=== PATIENT | male | born 1960 | race Caucasian/White ===

== ENCOUNTER 2020-11-17 08:30 | Inpatient (IN) | payer OTHER, SELFPAY ==
[2020-11-17] VITALS (17 sets, daily range): BP systolic 136–168; BP diastolic 83–119; PULSE 71–115; RESP 17–28; TEMP 36.2–36.8; O2SAT 94–99; BMI 31.2
--- NOTE | ~2020-11-17 | XR_ITS ---
EXAMINATION: XR chest 1V portable DATE: 11/17/2020 08:57 INDICATION: Ventricular fibrillation arrest. Transient alteration of awareness. TECHNIQUE: frontal view of the chest was obtained. COMPARISON: None FINDINGS: Patient is rotated towards the right. Bilateral increased interstitial pattern with mild pulmonary ed arlin. No focal airspace opacities, pleural effusion or pneumothorax. Borderline heart size accounting for AP technique. Enlargement of the central pulmonary arteries suggestive of pulmonary arterial hype rtension. IMPRESSION: 1. Borderline heart size with diffuse increased interstitial pattern consistent with mild pulmonary e rylee. Reviewed, dictated and finalized at location A. IMPRESSION: 1. Borderline heart size with diffuse increased interstitial pattern consistent with mild pulmonary edema.
--- NOTE | ~2020-11-17 | XR_ITS ---
XR chest ET placement 11/18/2020 00:39 Indication: Intubation. Respiratory arrest. Procedure: AP portable chest Comparison: 11/17/2020 Findings: Cardiomegaly with mild interstitial edema. No pleural effusion or pneumothorax. Endotrachea l tube 2.2 cm from the peter. NG tube passes in the stomach. Impression: 1: Cardiomegaly with mild interstitial edema. Reviewed, dictated and finalized at location A. Impression: 1: Cardiomegaly with mild interstitial edema.
--- NOTE | ~2020-11-17 | CT_ITS ---
EXAMINATION: CT brain wo con DATE: 11/17/2020 10:27 INDICATION: Altered mental status TECHNIQUE: Computed tomography (CT) of the head was performed without intravenous contrast. Sagittal and coronal reconstructions were performed. The mA was adjusted according to patient size. Iterative reconstruction technique was employed. The dose-length product was 605.33 mGy-cm. COMPARISON: None FINDINGS: No acute intracranial hemorrhage, acute infarction or abnormal extra axial fluid collection. Symmetri c mild increased prominence of the sulci and subarachnoid spaces overlying the convexities consistent with mild age-appropriate diffuse cerebral volume loss. Ventricles are normal and symmetric. No mas s/mass effect. The orbits, paranasal sinuses and mastoid air cells are normal. IMPRESSION: 1. Only aging brain. No acute intracranial process. Reviewed, dictated and finalized at location A.
--- NOTE | ~2020-11-17 | XR_ITS ---
XR abdomen NG/feed tube insert INDICATION: Evaluate NG tube position. TECHNIQUE: Limited KUB perform for evaluating NG tube . COMPARISON: No prior studies for comparison. FINDINGS: NG tube tip in the stomach. Left basilar airspace disease is present. Possible small left e ffusion.. IMPRESSION: 1: NG tube tip in the stomach. 2: Left basilar airspace disease, atelectasis versus pneumonia. Reviewed, dictated and finalized at location A.
--- NOTE | 2020-11-17 08:36 | ECG_ITS ---
Measurements Intervals [place] Rate: 120 P: NM: 0 QRS: 58 QRSD: 104 T: 0 QT: 347 QTc: 490 Interpretive Statements ATRIAL FIBRILLATION WITH RAPID VENTRICULAR RESPONSE DELAYED PRECORDIAL R/S TRANSITION NONSPECIFIC ST & T-WAVE ABNORMALITY- INF/LAT LEADS BASELINE ARTIFACT- I, II, III, AVR, AVL, AVF, V1-V6 ABNORMAL ECG Electronically Signed On 11-17-2020 16:49:02 CDT by Nash Murrell D.O.
--- NOTE | 2020-11-17 08:52 | ED.GENADULT ---
HPI - General Adult General Chief complaint: Cardiac Arrest/CPR Stated complaint: post cardiac arrest Source: patient History of Present Illness HPI narrative: Patient is a 60 y/o male brought in by EMS for V fib arrest. Per EMS, they were called around 7:47 for unresponsiveness. When police arrived, patient had no pulse with agonal respiration. CPR was started. When EMS arrived, patient was noted to be in V fib. He was defibrillated x 3 and eventually achieved ROSC. He was downtime was possibly 30 minutes. He was given Amiodarone 150 mg x 1. Oral airway was inserted, but removed CITY COLLECTOR due to patient's agitation. Patient is currently awake and agitated, but no able to answer questions. states that she was the bathroom and heard him breathing heavy. She noticed he was unresponsive. She called 911 and started CPR after she was instructed to do so. Related Data Home Medications Medication Instructions Recorded Confirmed multivitamin,tx-minerals 1 tablet PO DAILY 06/18/20 11/17/20 Allergies Allergy/AdvReac Type Severity Reaction Status Date / Time No Known Allergies Allergy Verified 11/17/20 09:22 Review of Systems Review of Systems: ROS unobtainable: Yes unobtainable due to mental status PMFSH Past Medical History Medical History Diabetes GERD (gastroesophageal reflux disease) HLD (hyperlipidemia) Hypertension Normal colonoscopy (~2016) repeat 5 years Family History Family History Father Hypertension Diabetes mellitus High cholesterol Mother Diabetes mellitus Heart disease High cholesterol Hypertension Sibling Breast cancer Social History Social History Smoking status: Never smoker Smokeless tobacco user: other Second hand tobacco smoke exposure: No Alcohol intake: never Substance use: never Substance use type: does not use Gender identity (if verbalized by the patient): Male Sexual Orientation (if Verbalized by the Patient): Straight or Heterosexual Spiritual care concerns: No Exam Const: General: well developed Orientation/consciousness: confusion HENMT: Head: normocephalic Ears: external ears normal General nose exam: Normal external nose present Eyes: General: appearance normal, both eyes and all related structures Conjunctivae: conjunctivae normal Neck: Neck: normal visual inspection and full ROM Chest: Chest palpation & inspection: normal inspection of the chest and no tenderness Resp: Effort & Inspection: normal respiratory effort Auscultation: clear to auscultation bilaterally Cardio: Rate: tachycardic Rhythm: abnormal rhythm irregularly irregular GI: GI Palp: No abdominal tenderness and Yes Soft to palpation Skin: General skin exam: normal color and turgor normal Neuro: General: confusion and other (does not answer questions or follow commands, moans and groans) Cognition (Neuro): abnormal cognition Motor exam (neuro): Other motor observations present (moves all 4 extremities spontaneously) Extrem: General: normal to inspection, full ROM and no pedal edema Psych: Appearance: grossly normal Speech and movement: Psychomotor agitation in speech present Affect: normal affect and Irritable affect present Course Reevaluation(s) Reevaluation #1: Rechecked. Patient is more awake, but still confused. He is able to state his name, but does not know where he is. He is able to follow simple commands and move all 4 extremities. Date: 11/17/20 Time: 10:17 Consultations Consultation #1: Discussed with Dr. Ott, who agrees to admit. Date: 11/17/20 Time: 09:27 Consultation #2: Discussed with Dr. Colon, who agrees to accept patient to ICU and will consult. Date: 11/17/20 Time: 09:30 Consultation #3: Discussed with Dr. Rey, who agrees to consult. Date: 11/17/20 Time: 09:48 Vital Signs Vital signs:
--- NOTE | 2020-11-17 08:55 | PC.NURSE ---
Pt continues to pull at IV, monitor, defib pads. Soft limb restraints applied for patient safety per order Dr. Mcnally.
--- NOTE | 2020-11-17 09:02 | PC.NURSE ---
Pharmacy contacted for amiodarone gtt. to bedside. Pt reoriented prn, but does not appear to recognize . Pt continues to attempt to pull at medical equipment. Per , has PMH DM, high cholesterol,HTN, acid reflux.
--- NOTE | 2020-11-17 09:05 | PC.NURSE ---
Addendum entered by Kvng Barros RN 11/17/20 09:22: Pt's states that she came out of the shoswer to patient having loud breathing, states she couldn't feel a pulse so she initiated CPR per dispatch request and then [employer] took over when they arrived. Original Note: CT unavailable at this time. updated and remains at bedside.
[2020-11-17 09:10] LABS: Basophils Absolute Auto 0.1 K/mm3 (0.0-0.1); Basophils Percent Auto 0.6 % (0.2-1.2); Eosinophils Absolute Auto 0.2 K/mm3 (0-0.3); Eosinophils Percent Auto 1.7 % (0-4.4); Hematocrit 44.9 % (42.0-52.0); Hemoglobin 14.4 g/dL (14.0-18.0); Immature Granulocyte Absolute 0.12 K/mm3 (0.00-0.031); Immature Granulocyte Percent A 1.2 % (0-0.5); Lymphocytes Absolute Auto 4.47 K/mm3 (0.9-3.2); Lymphocytes Percent Auto 43.3 % (18.3-44.2); Mean Corpuscular HGB Conc 32.1 g/dl (32-36); Mean Corpuscular Hemoglobin 28.5 pg (26-34); Mean Corpuscular Volume 88.9 fl (80-100); Mean Platelet Volume 11.4 fl (7.4-10.4); Monocytes Absolute Auto 0.8 K/mm3 (0.1-0.6); Monocytes Percent Auto 7.6 % (2.6-8.5); Neutrophils Absolute Auto 4.7 K/mm3 (1.3-6.7); Neutrophils Percent Auto 45.6 % (45.5-73.1); Platelet Count Result 235 k/mm3 (150-375); Red Blood Count 5.05 M/mm3 (4.6-6.20); Red Cell Distribution Width 13.6 % (11.5-14.5); White Blood Count 10.3 K/mm3 (4.5-10.0)
[2020-11-17] MEDS: AMIODARONE 360 MG/D5W 200 ML 360 MG/200 ML BAG 33.33 MG IV CONT (09:16)
[2020-11-17 09:19] LABS: Partial Thromboplastin Time 23.8 SECONDS (22.3-36.8)
[2020-11-17 09:22] LABS: Alanine Aminotransferase 171 U/L (4-50); Albumin Level 4.2 g/dL (3.5-5.1); Alkaline Phosphatase 93 U/L (38-126); Anion Gap 12 mmol/L (8-16); Aspartate Amino Transferase 159 U/L (17-59); Bilirubin,Total 0.5 mg/dL (0.2-1.3); Blood Urea Nitrogen 36 mg/dL (9-20); Calcium 9.3 mg/dL (8.4-10.2); Carbon Dioxide 25 mmol/L (22-30); Chloride 104 mmol/L (98-107); Estimated CRCL calculation 68 ml/min; Estimated Glomerular Filt Rate 57; Glucose 288 mg/dL (75-110); Potassium 4.4 mmol/L (3.4-5.0); Sodium 141 mmol/L (137-145)
[2020-11-17 09:31] LABS: Lactic Acid Reflex 5.6 mmol/L (0.7-2.1)
--- NOTE | 2020-11-17 09:32 | PC.NURSE ---
o2 placed at 2L/NC for pulse oximetry consistently 85-59% with good pleth. Pt remains in limb restraints to wrists. Note pt occasionally blows out, making sounds from lips. Pt's states that's the kind of noisy breathing he was doing.
[2020-11-17 09:33] LABS: Troponin I 0.031 ng/mL (0.000-0.034)
[2020-11-17 10:09] LABS: Magnesium 1.8 mg/dL (1.6-2.3)
--- NOTE | 2020-11-17 10:16 | PC.NURSE ---
To CT via stretcher.
--- NOTE | 2020-11-17 10:33 | PC.NURSE ---
Pt returns from CT. Pt now conversing with . Aware of name and month. Continuously asking why am I here? . Reoriented prn. Preparing to transport to ICU.
--- NOTE | 2020-11-17 10:49 | ADMGEN ---
This patient, James Magaña, was admitted to Intensive Care Unit-2. Patient/family oriented to hospital policies and general routines including ID bracelet, bed and alarms, visiting hours, pain management, procedures, bathroom and other care routines, personal items, smoking policy, room service/diet, and visiting hours. Information on how to activate the Rapid Response Team has been discussed. Patient/Family are encouraged to report perceived risks to care and to ask questions if they do not understand what they are told or what they should do.
--- NOTE | 2020-11-17 11:11 | WPDCNINT ---
Assessment and Plan Assessment and plan (1) Cardiac arrest with ventricular fibrillation: Code(s): I46.9 - Cardiac arrest, cause unspecified; I49.01 - Ventricular fibrillation Status: Acute Assessment and Plan: Cardiac arrest with ventricular fibrillation -could be related to ischemic disease, conduction defect -EKG did not reveal any ST changes, possible sinus rhythm with PACs or atrial fibrillation -started patient on heparin infusion -continue amiodarone infusion -appreciate cardiology evaluation and recommendation. -stat echocardiogram has been ordered (2) Atrial fibrillation with rapid ventricular response: Code(s): I48.91 - Unspecified atrial fibrillation Status: Acute Assessment and Plan: Continue amiodarone heparin infusion (3) HLD (hyperlipidemia): Qualifiers: Hyperlipidemia type: unspecified Qualified Code(s): E78.5 - Hyperlipidemia, unspecified Code(s): E78.5 - Hyperlipidemia, unspecified Status: Acute Assessment and Plan: Will start stastin when pt able to swallow (4) GERD (gastroesophageal reflux disease): Qualifiers: Esophagitis presence: without esophagitis Qualified Code(s): K21.9 - Gastro-esophageal reflux disease without esophagitis Code(s): K21.9 - Gastro-esophageal reflux disease without esophagitis Status: Acute Assessment and Plan: Continue Iv PPI (5) Diabetes: Qualifiers: Diabetes mellitus type: type 2 Diabetes mellitus 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 insulin use: without prison use Diabetes mellitus complication status: without complication Qualified Code(s): E11.9 - Type 2 diabetes mellitus without complications Code(s): E11.9 - Type 2 diabetes mellitus without complications Status: Acute Assessment and Plan: Sliding scale insulin and accucheks (6) Hypertension: Qualifiers: Hypertension type: essential hypertension Qualified Code(s): I10 - Essential (primary) hypertension Code(s): I10 - Essential (primary) hypertension Status: Acute Assessment and Plan: Will hold antihypertensives for now, would like to perfuse his brain and other organs adequately post arrest Additional Plan Discussed with at bedside and updated with patient's condition and plan of care. I answered all questions Status: Full code Critical care time spent: 51 minutes This dictation may have been done utilizing a voice recognition system. Attempts have been made to correct errors. However, there may be uncorrected grammatical, spelling, and recognition errors present. Due to a high probability of clinically significant, life threatening deterioration, the patient required my highest level of preparedness to intervene emergently and I personally spent this critical care time directly and personally managing the patient. This critical care time included obtaining a history; examining the patient; pulse oximetry; ordering and review of studies; arranging urgent treatment with development of a management plan; evaluation of patient's response to treatment; frequent reassessment; and discussions with other providers. It was exclusive of separately billable procedures and treating other patients and teaching time. Please see Assessment and Plan section and the rest of the note for further information on patient assessment and treatment Flight Follower Consult Note Consult date: 11/17/20 Time Seen: 10:53 Reason for consult: VFib arrest HPI: James Magaña is a 60 year old male past medical history of diabetes type 2, hypertension, hyperlipidemia presented the ED on 11/17/2020 after VFib arrest. According the patient had snoring respirations and she found him to be unresponsive, EMS was called, she started CPR on him as instructed by 911, initially the police arrived and the patient had no pulse and had agonal respirations, CPR was continued. Upon arrival of the EMS, patient was in VFib arr
[2020-11-17 11:42] LABS: Basophils Percent Auto 0.2 % (0.2-1.2); Eosinophils Percent Auto 0.2 % (0-4.4); Hematocrit 46.8 % (42.0-52.0); Hemoglobin 15.4 g/dL (14.0-18.0); Immature Granulocyte Absolute 0.07 K/mm3 (0.00-0.031); Immature Granulocyte Percent A 0.6 % (0-0.5); Lymphocytes Absolute Auto 0.78 K/mm3 (0.9-3.2); Lymphocytes Percent Auto 6.2 % (18.3-44.2); Mean Corpuscular HGB Conc 32.9 g/dl (32-36); Mean Corpuscular Hemoglobin 28.7 pg (26-34); Mean Corpuscular Volume 87.2 fl (80-100); Mean Platelet Volume 11.1 fl (7.4-10.4); Monocytes Percent Auto 7.8 % (2.6-8.5); Neutrophils Absolute Auto 10.6 K/mm3 (1.3-6.7); Platelet Count Result 176 k/mm3 (150-375); Red Blood Count 5.37 M/mm3 (4.6-6.20); Red Cell Distribution Width 13.5 % (11.5-14.5); White Blood Count 12.5 K/mm3 (4.5-10.0)
[2020-11-17 11:51] LABS: Partial Thromboplastin Time 21.8 SECONDS (22.3-36.8); Prothrombin Time 13.3 Seconds (11.1-14.7)
--- NOTE | 2020-11-17 11:52 | ECG_ITS ---
Measurements Intervals [place] Rate: 80 P: [place]: 0 QRS: 44 QRSD: 101 T: 29 QT: 391 QTc: 451 Interpretive Statements ATRIAL FIBRILLATION DELAYED PRECORDIAL R/S TRANSITION ABNORMAL ECG Electronically Signed On 11-17-2020 16:50:27 CDT by Nash Murrell D.O.
--- NOTE | 2020-11-17 11:56 | ECHO_ITS ---
Patient Info Name: Umesh Magaña Age: 60 years : 1960 Gender: Male Ht: 72 in Wt: 230 lbs BSA: 2.33 m2 HR: 89 bpm BP: 155 / 101 mmHg Heart Rhythm: Atrial Fibrillation Technical Quality: Good Exam Date: 11/17/2020 1:13 PM [facility]: ICU 2 Patient Status: Inpatient Admit Date: 11/17/2020 Staff Ordering Physician: Raquel Colon MD Welder Fitter Apprentice: Yuliana Fonseca RDCS Attending Provider: Earl Ott MD Referring Physician: Darlene BLACKWOOD; Exam Type: CA echo doppler color flow Study Info Indications - V FIB ARREST Complete two-dimensional, color flow and Doppler transthoracic echocardiogram is performed. Summary 1. Complete two-dimensional, color flow and Doppler transthoracic echocardiogram is performed. 2. Left ventricular chamber dimension is normal. 3. Left ventricular systolic function is normal, estimated at 55-60%. 4. There is mild aortic valve sclerosis. 5. There is no aortic valve stenosis. 6. There is trace tricuspid valve regurgitation. 7. There is trace mitral valve regurgitation. 8. Inferior vena cava is dilated with >50% collapse with inspiration. Left Ventricle Left ventricular chamber dimension is normal. Left ventricular systolic function is normal, estimated at 55-60%. There is no increased left ventricular wall thickness. Left ventricular septal wall motion is normal. Right Ventricle Right ventricular chamber dimension is normal. Right ventricular systolic function is normal. Left Atria Left atrial chamber dimension is normal. Right Atria Right atrial chamber dimension is normal. Aortic Valve The aortic valve is trileaflet. There is mild aortic valve sclerosis. There is no aortic valve stenosis. There is no aortic valve regurgitation. Pulmonic Valve The pulmonic valve is normal. There is no pulmonic valve stenosis. There is no pulmonic regurgitation. Mitral Valve The mitral valve has normal leaflets. There is no mitral valve stenosis. There is trace mitral valve regurgitation. Tricuspid Valve The tricuspid valve leaflets are normal. There is no significant tricuspid valve stenosis. There is trace tricuspid valve regurgitation. Unable to assess PA systolic pressure due to poor TR jet. Pericardium/Pleural The pericardium appears normal. There is no pericardial effusion. Inferior Vena Cava Inferior vena cava is dilated with >50% collapse with inspiration. Aorta The aortic root size at the sinus of Valsalva is normal. The prox ascending aorta size is normal. Left Ventricular Outflow Tract Name Value Normal LVOT 2D LVOT Diameter 2.1 cm LVOT Doppler LVOT Peak Gradient 5 mmHg LVOT Mean Gradient 3 mmHg LVOT VTI 17 cm LVOT VTI/AV VTI Ratio 0.8 LVOT Stroke Volume 58 ml LVOT CO 16.3 l/min LVOT CI 7.0 l/min/m2 Pulmonic Valve
--- NOTE | 2020-11-17 11:56 | PM.CNCAR ---
Assessment and Plan Assessment and plan (1) Cardiac arrest with ventricular fibrillation: Code(s): I46.9 - Cardiac arrest, cause unspecified; I49.01 - Ventricular fibrillation Status: Acute Assessment and Plan: This is a 60 y/o very active/athlete male with h/o HTN, DM, HLD who presented with V fib arres This is primarily cardiac unless proven otherwise. His electrolytes and blood sugar are within normal limits. No hypoxia or underlying lung disease. He has good neurological recovery so far and is hemodynamically stable His EKG shows no ST elevation or depression with underlying A fib Initial trop negative. Subsequent trop is up to 3 (had 30 minutes of CPR) Agree with IV heparin. Will get stat echo. if he has regional wall motion will arrange for cath today. Agree with IV amiodarone for now Will give ASA if he has not received it yet. (2) Atrial fibrillation: Code(s): I48.91 - Unspecified atrial fibrillation Status: Acute Assessment and Plan: post arrest. Continue Amio drip for now. Ischemic eval with cath as above, possibly today particularity if EF low or has regional wall motion changes (3) Hypertension: Qualifiers: Hypertension type: essential hypertension Qualified Code(s): I10 - Essential (primary) hypertension Code(s): I10 - Essential (primary) hypertension Status: Acute Assessment and Plan: Agree with holding meds for now. (4) Diabetes: Qualifiers: Diabetes mellitus type: type 2 Diabetes mellitus director of pupil personnel program insulin use: without director of pupil personnel program use Diabetes mellitus complication status: without complication Qualified Code(s): E11.9 - Type 2 diabetes mellitus without complications Code(s): E11.9 - Type 2 diabetes mellitus without complications Status: Acute History of Present Illness History of Present Illness Consult date/time: 11/17/20 11:56 60 y/o male with h/o HTN, DM, HLD who presented with V fib arrest History per . She noticed that he had agonal breathing this am and he was not responsive when she tried to wake him up. She called 911, started CPR and EMS found in V fib for which he received defibrillation X3. He is now awake but somewhat confused. Able to recognize his at bedside but has no recollection of what happened earlier today. He is on IV heparin and IV amiodarone. His chest is sore (received CPR X30 minutes). EKG shows A fib with no ST elevation or depression. Tele shows rate controlled atrial fibrillation. K 4.1, Mg 1.8. Intal trop negative and subsequent trop is up to 2.9. Lactic acid is 5. He is very active at baseline. He biked 20 miles yesterday. He swims 3 days a week. No tobacco abuse. Father of old age. Mother had pacemaker. Reason For Visit: v fib arrest Review of Systems Review of Systems: ROS unobtainable: Yes unobtainable due to mental status PMFSH Past Medical History Medical History Diabetes GERD (gastroesophageal reflux disease) HLD (hyperlipidemia) Hypertension Normal colonoscopy (~2016) repeat 5 years Family History Family History Father Hypertension Diabetes mellitus High cholesterol Mother Diabetes mellitus Heart disease High cholesterol Hypertension Sibling Breast cancer Social History Social History Smoking status: Never smoker Smokeless tobacco user: other Second hand tobacco smoke exposure: No Alcohol intake: never Substance use: never Substance use type: does not use Gender identity (if verbalized by the patient): Male Sexual Orientation (if Verbalized by the Patient): Straight or Heterosexual Spiritual care concerns: No Meds Home Medications and Allergies Home Medications Medication Instructions Recorded Confirmed Type multivitamin,t
[2020-11-17 12:06] LABS: Reflex Lactic Acid Yes or No Add Lactic
[2020-11-17] MEDS: HEPARIN SODIUM 5,000 UNITS/ML VIAL 7000 UNITS IV PUSH (12:25)
[2020-11-17] MEDS: HEPARIN SOD/D5W 100 UNITS/ML 25,000 UNITS/250 ML BAG 15 UNITS IV CONT (12:33)
[2020-11-17 12:41] LABS: Glucose Point of Care 198 (65-105)
[2020-11-17] MEDS: SODIUM CHLORIDE 0.9% IV 1,000 ML 75 ML IV CONT (12:52)
[2020-11-17] MEDS: PANTOPRAZOLE SODIUM IV 40 MG VIAL IV PUSH (12:56)
[2020-11-17] MEDS: ASPIRIN 325 MG TABLET PO (12:58)
--- NOTE | 2020-11-17 14:00 | PM.IMHP ---
H&P: HPI History of Present Illness Date/Time: 11/17/20 14:00 Chief Complaint: Cardiac arrest. Narrative: This is a 60-year-old male with hypertension, hyperlipidemia, and type 2 diabetes mellitus who presented to the emergency department earlier today via EMS from home after he was found unresponsive and with agonal respirations by his . The patient is alert and mostly oriented at the time my evaluation however has no memory of what transpired today and has pretty significant short-term memory loss since the event this morning. As such a majority of the following is obtained via a review of his electronic medical records as well as discussions with his was at bedside. 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 Yesterday he biked approximately 40 miles and seemed to be in his usual state of health when he went to bed. This morning when his got out of the shower she heard him breathing strangely in the bedroom and when she went to check on him she was unable to get him to respond and she called 911. The police department was 1st on scene and the patient was agonal breathing and CPR was initiated as he was pulseless. On EMS arrival he was noted to be in ventricular fibrillation and was defibrillated x3 with eventual return of spontaneous circulation. He was bolused with amiodarone 150 milligrams and oral airway was inserted however removed prior to arrival as the patient was becoming alert and agitated. He remains on amiodarone at this time and is noted to be in atrial fibrillation. The patient has not had any significant episodes of chest pain with a his frequent exercise program. He had a stress test done many years ago which was unremarkable. He has never experienced feelings of irregular heartbeat or palpitations. No history of sleep apnea however his reports that he snores loudly and on occasion she has witnessed some episodes of apnea. At the time my evaluation the patient is eating and has no complaints aside from mild chest discomfort from CPR today. No recent change in medications. Denies significant alcohol and caffeine use. He does not take [id number] supplements or herbs. Of note his mother has an ICD in place and has been diagnosed with idiopathic dilated cardiomyopathy. Review of Systems Review of Systems: Narrative: Twelve systems were reviewed with pertinent positives and negatives as per HPI. No fever, chills, or sweats. No recent cold or flu symptoms. He had COVID-19 in June 2020. Denies cough and shortness of breath. No orthopnea, PND, or lower extremity edema. No nausea or vomiting. Diabetes well controlled with a recent hemoglobin A1c around 6.5%. No blurry vision, polydipsia, or polyuria. [facility] Past Medical History Medical History (Updated 11/17/20 @ 22:31 by Shirin Borges PA-C) COVID-19 (~06/2020) Gastroesophageal reflux disease Hyperlipidemia Hypertension Normal colonoscopy (~2016) Osteoarthritis of both knees Type 2 diabetes mellitus Hemoglobin A1c was 6.5% on 11/12/2020. Surgical History Surgical History (Updated 11/17/20 @ 14:04 by Shirin Borges PA-C) History of surgery on right wrist ORIF right wrist fracture. Family History Family History (Updated 11/17/20 @ 22:26 by Shirin Borges PA-C) Father Hypertension Diabetes mellitus High cholesterol Mother Diabetes mellitus Heart disease High cholesterol Hypertension Primary idiopathic dilated cardiomyopathy Sibling Breast cancer Social History Social History (Updated 11/17/20 @ 22:25 by Shirin Borges PA-C) Social History: Surrogate decision maker: Alexsandra Magaña, . Code status: Full code. Smoking status: Never smoker Second hand tobacco smoke exposure: No Alcohol intake: never Substance use: never Substance use type: does not use Additional living arrangements comments: Lives in [place] with his . Additional
[2020-11-17] MEDS: AMIODARONE 360 MG/D5W 200 ML 360 MG/200 ML BAG 16.67 MG IV CONT (14:52)
--- NOTE | 2020-11-17 16:03 | ECG_ITS ---
Measurements Intervals [place] Rate: 96 P: [place]: 0 QRS: 35 QRSD: 108 T: 12 QT: 365 QTc: 461 Interpretive Statements ATRIAL FIBRILLATION VENTRICULAR PREMATURE COMPLEX ABNORMAL ECG Electronically Signed On 11-17-2020 20:14:29 CDT by Nash Murrell D.O.
--- NOTE | 2020-11-17 16:13 | PM.EVENT ---
Event Note Event Note Event Note: Reviewed stat echocardiogram at bedside. Patient has normal LV systolic function and no obvious regional wall motion changes. Will continue IV heparin and plan LHC in am with Dr Rey Continue to trend troponin and check serial EKGs Mental status continues to improve post arrest. He remains hemodynamically stable tele with rate controlled A fib. Continue Amiodarone drip Pneding ischemic evaluation he will eventually need ICD for secondary prevention
[2020-11-17 18:28] LABS: Glucose Point of Care 144 (65-105)
[2020-11-17 18:47] LABS: Partial Thromboplastin Time 96.3 SECONDS (22.3-36.8)
--- NOTE | 2020-11-17 20:12 | ECG_ITS ---
Measurements Intervals [place] Rate: 73 P: -5 IL: 152 QRS: 34 QRSD: 102 T: 19 QT: 406 QTc: 448 Interpretive Statements SINUS RHYTHM DELAYED PRECORDIAL R/S TRANSITION NONSPECIFIC ST ELEVATION IN ANTEROSEPTAL LEADS- CONSIDER ACUTE INJURY ABNORMAL ECG Electronically Signed On 11-18-2020 7:20:58 CDT by Nash Murrell D.O.
[2020-11-17 21:14] LABS: NT Pro B Type Natriuretic Pept 1240 PG/ML (5-100)
[2020-11-17] MEDS: HYDROcodone/acetaminophen (*CRX) 5-325 MG TABLET 1 TAB PO (22:50)
--- NOTE | 2020-11-17 23:11 | PCRCNOTE ---
APNEA LINK HELD DUE TO PT CONDITION. DEWAYNE LEVY STATES THAT PT IS CONFUSED, GOING TO CCL IN AM AND REQUIRES MONITORING.
--- NOTE | 2020-11-17 23:35 | PC.NURSE ---
Patient Vfib Arrest. See code sheet. Dr. Mari notified. Plan for [employer]. supervisor claims notified. aware.
--- NOTE | 2020-11-17 23:40 | P.PCNBED_ITS ---
Procedures Intubation Intubation Date: 11/17/20 Intubation Time: 23:40 Consent: Patients gave consent. A pre-procedural Time-Out was completed immediately before starting the procedure and confirmed: Patient Identification, Site, Procedure, Patient Position and the Availability of Requisite Equipment: Yes Sedative: versed Mg given: 4 Paralytic: rocuronium Mg given: 50 Laryngoscope: Wang Assist device used: fiber optic device ET tube size: 8 Tube secured depth (cm): 26 Tube secured location: lips Tube placement confirmation: visualized tube passing through cords, equal breath sounds bilaterally, no breath sounds over epigastrium and confirmation by capnometry Patient tolerated procedure: well Intubation complications: none Additional comments: Chest x-ray pending. Vent settings per party plan sales unit advisor. Dr. Mercado, attending ED physician, with available if needed.
--- NOTE | 2020-11-17 23:40 | P.PNCROSS_ITS ---
Event Note Event Note Event Note: Code blue called overhead, management per Dr. Stephanie Méndez. Given recurrent episodes of ventricular fibrillation, my attending physician and I decided it would be best to intubate the patient for airway protection as he was going to the laborer brush clearing. Please see Dr. Méndez's note.
[2020-11-18] VITALS (13 sets, daily range): BP systolic 113–134; BP diastolic 71–87; PULSE 51–68; RESP 16–18; TEMP 36.7–36.8; O2SAT 94–99
[2020-11-18] MEDS: RAPID SEQUENCE INTUBATION KIT 1 EACH
[2020-11-18] MEDS: PROPOFOL IV EMULSION 100 ML 12.54 MG IV CONT
[2020-11-18 00:04] LABS: Glucose Point of Care 154 (65-105)
--- NOTE | 2020-11-18 00:32 | P.CODEBLUE_ITS ---
Code Blue Note Code Blue Note Time Arrived at Code Blue: 23:26 Initial Rhythm on Arrival: Sinus rhythm Airway Management: Pt intubated during resuscitation Result of Code Blue: Pt transferred to section laborer Cardiac Rhythm Post Code: Sinus rhythm Code Blue Summary: Initial Code Manuel is called at 11:25 p.m.. The patient had went into ventricular fibrillation. Chest compressions were initiated in the patient received cardiac defibrillation. After defibrillation the patient had a perfusing rhythm. Rhythm on monitor was normal sinus. Patient's blood pressures were elevated to the 180 systolic. The patient was maintaining his airway. Cardiology was contacted and the decision was made to call out the section laborer team. Before the cath team could arrive (around 23:37) the patient again went into VFib again. His rhythm almost looked like torsades. The patient received cardiac defibrillation again with resumption of normal sinus rhythm. The patient was awake and talking immediately following defibrillation. His blood pressures were again elevated. The patient received 2 g of magnesium during resuscitation. The patient was having episodes of nausea and dry heaves. Patient was having some PVCs. The patient was confused and there was concern about maintain patient's airway. The patient was requiring increased oxygen with face mask. Subsequently decision was made to intubate the patient. The patient received 50 of rocuronium in 4 Versed for sedation and the patient was intubated by the PA with glide scope. Following intubation chest x-ray was reviewed ET tube was only 1-2 cm from the peter subsequently the ET tube was pulled back 1 cm. Ventilator settings were ordered. The patient did have h ypoxia following intubation and subsequently was placed on 100% FiO2 tidal volume 500 peep of 5 rate of 18. With improved oxygen saturations up to 95%. The patient went to section laborer around 0035. The multi disciplined language analyst was contacted and updated as to the patient's condition. 50 minutes spent in critical care activities. This case had a high probability of a clinically significant, sudden, or life threatening deterioration of this patient's condition which required my full and direct attention, intervention and personal management.
[2020-11-18 01:07] LABS: PCO2 ABG 38.8 mmHg (35.0-45.0); PO2 ABG 171.4 mmHg (80.0-100.0); pH ABG 7.367 (7.350-7.450)
[2020-11-18 01:08] LABS: Alveolar/Arterial O2 Gradient 502.8 mmHg; Base Excess ABG -3.2 mEq/l (+/-2.0); Carboxyhemoglobin 0.1 % THb (0-2.0); Device VENTILATOR; Fractional Inspired Oxygen 100 %; HCO3 ABG 21.8 mEq/l (22.0-26.0); Methemoglobin ABG 0.5 %THb (0-1.5); Modified Allen's Test Pass; Oxygen Content ABG 20.7 %vol (16.0-22.0); Oxygen Saturation ABG 99.1 % (95.0-100.0); Oxyhemoglobin 97.9 % THb (90.0-100.0); PO2 FiO2 Ratio Arterial Blood 1.71 %; Reduced Hemoglobin 1.5 %THb (0-5.0); Site Drawn RIGHT RADIAL; Total Hemoglobin 14.8 g/dL (12.0-18.0)
[2020-11-18 01:09] LABS: Arterial Blood Gas PEEP 5 cmH2O; Arterial Blood Gas Tidal Volume 500 ml; Arterial Blood Gas Vent Mode CMV; Arterial Blood Gas Ventilator rate 16 /MIN
--- NOTE | 2020-11-18 02:00 | WPDMODSED ---
Moderate Sedation Note-Pt Data Patient Data Allergies Allergy/AdvReac Type Severity Reaction Status Date / Time No Known Allergies Allergy Verified 11/17/20 09:22 Home Medications Medication Instructions Recorded Confirmed Type multivitamin,tx-minerals 1 tablet PO DAILY 06/18/20 11/17/20 History atorvastatin 20 mg tablet 20 mg PO DAILY #30 tablet 06/19/20 11/17/20 Rx esomeprazole magnesium 40 mg 40 mg PO DAILY #30 cap 06/19/20 11/17/20 Rx capsule,delayed release telmisartan 80 1 tablet PO DAILY #30 tablet 06/19/20 11/17/20 Rx mg-hydrochlorothiazide 25 mg tablet metformin 1,000 mg tablet 1,000 mg PO BID #60 tablet 11/14/20 11/17/20 Rx Current Medications: Active Medications Dextrose (Dextrose 50% 25 Gm/50 Ml Syringe) 12.5 gm IV PUSH PRN PRN; Protocol PRN Reason: Hypoglycemia Glucagon (Glucagon For Inj 1 Mg Vial) 1 mg IM PRN PRN; Protocol PRN Reason: Hypoglycemia Glucose (Glucose Oral Gel 15 Gm Of Glucse In 37.5 Gm Tube) 15 gm PO PRN PRN; Protocol PRN Reason: Hypoglycemia Heparin Sodium (Porcine) (Heparin Sodium 5,000 Units/Ml Vial) 7,000 units IV PUSH PRN PRN PRN Reason: aPTT less than 55 seconds Heparin Sodium (Porcine) (Heparin Sodium 5,000 Units/Ml Vial) 3,500 units IV PUSH PRN PRN PRN Reason: aPTT 55 - 70 seconds Amiodarone HCl/Dextrose (Nexterone 360 Mg/D5w 200 Ml) 360 mg in 200 mls @ 16.667 mls/hr IV CONT .Q12H [facility] Last Admin: 11/17/20 14:52 Dose: 0.5 mg/min, 16.67 mls/hr Documented by: Heparin Sodium/Dextrose (Heparin Sodium/D5w 100 Units/Ml) 25,000 units in 250 mls @ 15 mls/hr IV CONT .[id number] [facility]; Protocol Last Titration: 11/17/20 18:51 Dose: 1,500 units/hr, 15 mls/hr Documented by: Acetaminophen (Ofirmev 500 Mg Ivpb) 500 mg in 50 mls @ 200 mls/hr IVPB Q6HR PRN PRN Reason: Pain and fever Stop: 11/18/20 12:01 Sodium Chloride (Normal Saline Iv) 1,000 mls @ 75 mls/hr IV CONT .[id number] TAMAR Last Infusion: 11/17/20 22:05 Dose: 0 mls/hr Documented by: Dextrose (Dextrose 5% 1,000 Ml) 1,000 mls @ 100 mls/hr IVPB PRN PRN; Protocol PRN Reason: Hypoglycemia Sodium Chloride (Normal Saline Iv) 500 mls @ 100 mls/hr IV CONT .Q5H TAMAR Insulin Aspart (Insulin Aspart (*Bkc) 100 Units/Ml) 3 - 6 units SUB-Q Q6H TAMAR; Protocol Last Admin: 11/17/20 18:27 Dose: Not Given Documented by: Ondansetron HCl (Ondansetron Inj 4 Mg/2 Ml Vial) 4 mg IV PUSH Q6H PRN PRN Reason: Nausea And Vomiting Pantoprazole Sodium (Pantoprazole Sodium Iv 40 Mg Vial) 40 mg IV PUSH QAM TAMAR Sedation/Anesthesia: No previous sedation/anesthesia problems (including family history). [facility] Past Medical History Medical History (Updated 11/17/20 @ 22:31 by Shirin Borges PA-C) COVID-19 (~06/2020) Gastroesophageal reflux disease Hyperlipidemia Hypertension Normal colonoscopy (~2016) Osteoarthritis of both knees Type 2 diabetes mellitus Hemoglobin A1c was 6.5% on 11/12/2020. Surgical History Surgical History (Updated 11/17/20 @ 14:04 by Shirin Borges PA-C) History of surgery on right wrist ORIF right wrist fracture. Family History Family History (Updated 11/17/20 @ 22:26 by Shirin Borges PA-C) Father Hypertension Diabetes mellitus High cholesterol Mother Diabetes mellitus Heart disease High cholesterol Hypertension Primary idiopathic dilated cardiomyopathy Sibling Breast cancer Social History Social History (Updated 11/17/20 @ 22:25 by Shirin Borges PA-C) Social History: Surrogate decision maker: Alexsandra Magaña, . Code status: Full code. Smoking status: Never smoker Second hand tobacco smoke exposure: No Alcohol intake: never Substance use: never Substance use type: does not use Additional living arrangements comments: Lives in [place] with his . 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 Sexual Orientation (if Verbalized by the Patient): Straight or Heterosexual Spiritual care concerns: No Mod Sed
--- NOTE | 2020-11-18 02:01 | P.PCNCC_ITS ---
Cardiac Cath Procedure Note Date of procedure:: 11/18/20 Performing physician:: Gage Rey MD Procedure: 1. Left heart catheterization, selective coronary angiogram. 2. insertion of intra-aortic balloon pump 3. Conscious sedation. Gem Expert: Dr. Gage Rey Complications: None. Sedation: Conscious sedation, local anesthesia, using 1 mg of Versed said, 25 mcg of fentanyl, and using 1% lidocaine for local anesthesia. patient was already intubated and was on propofol drip which was continued throughout the procedure History: 60 years old gentleman with history of diabetes mellitus history of dyslipidemia, came to the hospital because of loss of consciousness and noted to have ventricular fibrillation arrest at the field, he was resuscitated in the day and maintained sinus rhythm until 11:30 tonight, when he had another VFib arrest had to be recessed stated again, due to that he was brought to the [facility] for urgent cardiac catheterization and possible treatment as indicated Technique: After informed consent was obtained from patient's , was brought to the [facility], put in the lab[facility] table, prepped and draped in usual sterile fashion. Five Jamaican sheath was inserted into the right common femoral artery, through the sheath 6 Jamaican JL4 catheter inserted, advanced to the left coronary artery, left coronary artery angiogram was obtained. The catheter was exchanged over guidewire into a 6 Jamaican JR4 catheter, advanced to the right coronary artery, right coronary artery angiogram was obtained. The catheter then was exchanged over guidewire into this 6 Jamaican pigtail catheter, advanced to left ventricle, left ventricular pressure was obtained. The catheter then was pulled, the sheath was exchanged over guidewire into 8 Jamaican sheath to use for the balloon pump, intra-aortic balloon pump was inserted under fluoro guidance, after was connected, balloon was inflated and then counterpulsation was started. The sheath was sutured and patient was transferred to his room in stable condition stable vital signs Hemodynamics: aortic pressure 124/60 . LV pressure 124/04 with LVEDP of 14 mmHg Angiographic findings: Left main: Medium size artery with distal left main 50% disease Lad medium size artery showed ostial 75% followed by complex lesion about 90% with slight aneurysmal dilatation at the takeoff of the 1st diagonal branch, the diagonal branch has ostial disease 90%, and the body of the LAD has another lesion at the mid section and and distally seems to be good target for bypass grafting Left circumflex artery, medium size artery, with proximal 75%, 1st obtuse marginal has ostial 75% but it is a smaller vessel, distally the 2nd obtuse marginal has 90% lesion, distal to that there is good area for possible target for bypass grafting RCA: Dominant vessel, showed minimal distal irregularity with no obstructive lesions noted LV: was not done due to arrhythmia but however had an echocardiogram showed normal left ventricular systolic function Summary: severe three-vessel coronary disease with subtotal occlusion of the LAD and complex lesion at the level of the bifurcation, along with disease of the left circumflex Recommendation: intra-aortic balloon pump was inserted, due to diffuse disease and significant ongoing ischemia with arrhythmia, patient would benefit from coronary bypass surgery with WEEKS to LAD saphenous venous graft to diagonal branch obtuse marginal 1 and obtuse marginal 2. will make arrangement for trans almas for bypass surgery
--- NOTE | 2020-11-18 02:14 | PM.PNCARD ---
Subjective Date/time seen: 11/18/20 02:14 cardiac catheterization was done, revealing complex three-vessel disease with significant lesion in the LAD and circumflex, patient had intra-aortic balloon pump inserted, will need to be transferred to [facility] for coronary bypass surgery. While getting the cardiac catheterization had another episode of ventricular fibrillation seems to be more of torsade, will switch from amiodarone to lidocaine Objective Data Vital Signs Vital Signs: Vital Signs - 24 hr 11/17/20 08:36 11/17/20 08:37 11/17/20 08:38 Temperature 36.2 C L Pulse Rate 89 115 H 109 H Respiratory Rate 23 H 24 H 27 H Blood Pressure 152/119 H 152/119 H Pulse Oximetry 97 96 11/17/20 08:45 11/17/20 09:00 11/17/20 09:16 Temperature Pulse Rate 100 93 88 Respiratory Rate 28 H 20 Blood Pressure 149/100 H 144/104 H Pulse Oximetry 97 11/17/20 09:21 11/17/20 09:30 11/17/20 10:03 Temperature Pulse Rate 89 94 96 Respiratory Rate 22 H 21 H Blood Pressure 136/88 149/92 H Pulse Oximetry 94 94 11/17/20 12:00 11/17/20 14:00 11/17/20 14:52 Temperature 36.7 C Pulse Rate 85 92 90 Respiratory Rate 26 H 20 Blood Pressure 148/94 H 147/98 H 147/98 H Pulse Oximetry 99 98 11/17/20 16:00 11/17/20 18:00 11/17/20 20:00 Temperature 36.7 C 36.8 C Pulse Rate 91 90 75 Respiratory Rate 23 H 20 23 H Blood Pressure 168/96 H 156/83 H 159/93 H Pulse Oximetry 98 98 98 11/17/20 22:00 11/17/20 23:55 11/18/20 00:14 Temperature Pulse Rate 71 75 Respiratory Rate 17 Blood Pressure 163/96 H Pulse Oximetry 98 98 98 Intake/Output Intake/Output: Intake & Output 11/15/20 11/16/20 11/17/20 11/18/20 23:59 23:59 23:59 23:59 Intake Total 50 Output Total 650 Balance -600 Meds/Results Medications: Active Medications Generic Name Dose Route Start Last Admin Trade Name Freq PRN Reason Stop Dose Admin Dextrose 12.5 gm 11/17/20 11:41 Dextrose 50% 25 Gm/50 Ml Syringe IV PUSH PRN PRN Hypoglycemia Protocol Glucagon 1 mg 11/17/20 11:41 Glucagon For Inj 1 Mg Vial IM PRN PRN Hypoglycemia Protocol Glucose 15 gm 11/17/20 11:41 Glucose Oral Gel 15 Gm Of Glucse In 37.5 Gm Tube PO PRN PRN Hypoglycemia Protocol Heparin Sodium (Porcine) 7,000 units 11/17/20 11:20 Heparin Sodium 5,000 Units/Ml Vial IV PUSH PRN PRN aPTT less than 55 seconds Heparin Sodium (Porcine) 3,500 units 11/17/20 11:20 Heparin Sodium 5,000 Units/Ml Vial IV PUSH PRN PRN aPTT 55 - 70 seconds Amiodarone HCl/Dextrose 360 mg in 200 mls @ 16.667 mls/hr 11/17/20 14:45 11/17/20 14:52 Nexterone 360 Mg/D5w 200 Ml IV CONT 0.5 mg/min .Q12H TAMAR 16.67 mls/hr Administration 0.5 MG/MIN Heparin Sodium/Dextrose 25,000 units in 250 mls @ 15 mls/hr 11/17/20 11:20 11/17/20 18:51 Heparin Sodium/D5w 100 Units/Ml IV CONT 1,500 units/hr .[id number] TAMAR 15 mls/hr Titration Protocol 1,500 UNITS/HR Acetaminophen 500 mg in 50 mls @ 200 mls/hr 11/17/20 12:00 Ofirmev 500 Mg Ivpb IVPB 11/18/20 12:01 Q6HR PRN Pain and fever Sodium Chloride 1,000 mls @ 75 mls/hr 11/17/20 11:25 11/17/20 22:05 Normal Saline Iv IV CONT 0 mls/hr .[id number] TAMAR Infusion Dextrose 1,000 mls @ 100 mls/hr 11/17/20 11:41 Dextrose 5% 1,000 Ml IVPB PRN PRN Hypoglycemia Protocol Sodium Chloride 500 mls @ 100 mls/hr 11/17/20 14:05 Normal Saline Iv IV CONT .Q5H TAMAR Sodium Chloride 1,000 mls @ 125 mls/hr 11/18/20 02:09 Normal Saline Iv IV CONT 11/18/20 10:08 .Q8H ONE Lidocaine HCl/Dextrose 2 gm in 500 mls @ 30 mls/hr 11/18/20 02:15 Lidocaine Hck In D5w 4mg/Ml IV CONT .[id number] TAMAR 2 MG/MIN Insulin Aspart 3 - 6 units 11/17/20 12:00 11/17/20 18:27 Insulin Aspart (*Bkc) 100 Units/Ml SUB-Q Not Given Q6H TAMAR Protocol Ondansetron HC
[2020-11-18 03:18] LABS: Partial Thromboplastin Time 63.9 SECONDS (22.3-36.8)
[2020-11-18] MEDS: HEPARIN SOD/D5W 100 UNITS/ML 25,000 UNITS/250 ML BAG 17 UNITS IV CONT (03:41)
[2020-11-18] MEDS: HEPARIN SODIUM 5,000 UNITS/ML VIAL 3500 UNITS IV PUSH (03:46)
--- NOTE | 2020-11-18 03:50 | PC.NURSE ---
[facility] flight team here. Patient to be put on their monitors.
--- NOTE | 2020-11-18 04:18 | PC.NURSE ---
Report Had been given to Nalini BUCHANAN at [facility]. Flight crew is here. Report given. Patient taken off our monitor and hooked up to theirs. No questions at this time.
--- NOTE | 2020-11-18 05:28 | PC.NURSE ---
Patient leaving per flight crew. aware of departure as well as Nalini BUCHAANN at [place].
--- NOTE | 2020-11-18 10:02 | PM.DS ---
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 Continue Amio drip for now. Ischemic eval with cath as above, possibly today particularity if EF low or has regional wall motion changes (3) Hypertension: Qualifiers: Hypertension type: essential hypertension Qualified Code(s): I10 - Essential (primary) hypertension Code(s): I10 - Essential (primary) hypertension Status: Acute Assessment and Plan: Agree with holding meds for now. (4) Diabetes: Qualifiers: Diabetes mellitus complication status: without complication Diabetes mellitus retirement insulin use: without retirement use Diabetes mellitus type: type 2 Qualified Code(s): E11.9 - Type 2 diabetes mellitus without complications Code(s): E11.9 - Type 2 diabetes mellitus without complications Status: Acute DS: Summary Hospital Course Hospital Course: He had V fib arrest 3 times Had cath with 3 vessel CAD, and had IABP inserted Time Spent with Patient Time attestation: Total time spent providing and/or coordinating discharge services: 45 min Cath with 3 Vessel CAD., had V fib 3 times, no recurrence after Lidocaine, and IABP Exam Const: General: no acute distress Eyes: Sclera: sclerae normal Neck: Neck: no JVD Carotids: no bruits Resp: Effort & Inspection: normal respiratory effort Auscultation: clear to auscultation bilaterally Cardio: Rate: regular rate and not tachycardic Rhythm: regular rhythm Heart sounds: no gallops, no murmurs and no rubs Skin: General skin exam: normal color Neuro: Cranial nerves: Yes Normal hearing present Speech: normal speech Extrem: General: normal to inspection and no edema Psych: Affect: normal affect DS: Data Data Completed and Pending Labs on day of discharge: Labs from last 24 hours 11/18/20 11/18/20 11/17/20 02:44 01:05 23:31 WBC RBC Hgb Hct MCV MCH MCHC RDW Plt Count MPV Immature Gran % (Auto) Neut % (Auto) Lymph % (Auto) [place] % (Auto) Eos % (Auto) Baso % (Auto) Lymph # (Auto) [place] # (Auto) Eos # (Auto) Baso # (Auto) Abs Immat Gran (auto) Absolute Neuts (auto) Absolute Nucleated RBC Nucleated RBC % PT INR APTT 63.9 H Puncture Site Right radial ABG pH 7.367 ABG pCO2 38.8 ABG pO2 171.4 H ABG PO2/FiO2 Ratio 1.71 ABG HCO3 21.8 L ABG O2 Saturation 99.1 ABG O2 Content 20.7 ABG Base Excess -3.2 A-a Gradient 502.8 Oxyhemoglobin 97.9 Carboxyhemoglobin 0.1 Methemoglobin 0.5 Reduced Hemoglobin 1.5 Total Hemoglobin 14.8 O2 Delivery Device Ventilator O2 Liters/Min Not Reportable Minute Volume Not Reportable Vent Rate 16 Vent Mode Cmv FiO2 100 Tidal Volume 500 PEEP 5 Peak Inspir Pressure Not Reportable Pressure Support Not Reportable POC Capillary Glucose 154 H Lactic Acid Magnesium Troponin I NT-Pro-B Natriuret Pep TSH (Reflex) 11/17/20 11/17/20 11/17/20 20:45 18:29 18:24 WBC RBC Hgb Hct MCV MCH MCHC RDW Plt Count MPV Immature Gran % (Auto) Neut % (Auto) Lymph % (Auto) [place] % (Auto) Eos % (Auto) Baso % (Auto) Lymph # (Auto) [place] # (Auto) Eos # (Auto) Baso # (Auto) Abs Immat Gran (auto) Absolute N
--- NOTE | 2020-11-19 09:00 | SUR.OPER ---
Heparin restarted at 0124 following IABP insertion per MD Rey.
--- NOTE | 2020-11-28 15:21 | PM.TDS ---
Transfer Discharge Sum: Prov Provider Date of admission: 11/17/20 09:48 Primary care physician: Kelly Carlisle MD Admitting clinician: Earl Ott MD Consults: 11/17/20 09:43 Consult to Physician Routine Comment: Consulting Provider: Raquel Colon Reason for consultation: v fib Has provider been notified: Yes 11/17/20 09:48 Consult to Physician Routine Comment: Consulting Provider: Gage Rey Reason for consultation: v fib arrest Has provider been notified: Yes DS: Admitting Diagnosis Admitting Diagnosis Admitting Diagnosis: V fib Cardiac arrest NSTEMI DS: Discharge Diagnosis Discharge Diagnosis (1) Cardiac arrest with ventricular fibrillation: Code(s): I46.9 - Cardiac arrest, cause unspecified; I49.01 - Ventricular fibrillation Status: Acute Assessment and Plan: This is a 60 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 Continue Amio drip for now. Ischemic eval with cath as above, possibly today particularity if EF low or has regional wall motion changes (3) Hypertension: Qualifiers: Hypertension type: essential hypertension Qualified Code(s): I10 - Essential (primary) hypertension Code(s): I10 - Essential (primary) hypertension Status: Acute Assessment and Plan: Agree with holding meds for now. (4) Diabetes: Qualifiers: Diabetes mellitus type: type 2 Diabetes mellitus senior living insulin use: without senior living use Diabetes mellitus complication status: without complication Qualified Code(s): E11.9 - Type 2 diabetes mellitus without complications Code(s): E11.9 - Type 2 diabetes mellitus without complications Status: Acute Transfer Discharge Sum: Med Medications Active and Home Medications: Home Medications multivitamin,tx-minerals 1 tablet PO DAILY 06/18/20 [History Confirmed 11/17/20] atorvastatin 20 mg tablet 20 mg PO DAILY #30 tablet 06/19/20 [Rx Confirmed 11/17/20] esomeprazole magnesium 40 mg capsule,delayed release 40 mg PO DAILY #30 cap 06/19/20 [Rx Confirmed 11/17/20] telmisartan 80 mg-hydrochlorothiazide 25 mg tablet 1 tablet PO DAILY #30 tablet 06/19/20 [Rx Confirmed 11/17/20] metformin 1,000 mg tablet 1,000 mg PO BID #60 tablet 11/14/20 [Rx Confirmed 11/17/20] blood sugar diagnostic #100 ea 11/25/20 [Rx] Transfer Discharge Sum: Hosp Hospital Course Hospital course: Umesh Cabrera Archana is a 60 year old male Time Spent with Patient Time attestation: Total time spent providing and/or coordinating transfer services:
--- NOTE | 2020-11-28 15:51 | WPDCARDPROC ---
Cardiac Cath Procedure Note Date of procedure:: 11/28/20
== END 2020-11-18 04:45 | disposition short-term general hospital (02) | DRG 272 ==
LOC: ANHED 09:41 → ANHICU 10:19
PROVIDERS: Internal Medicine; Physician Assistant; Admitting Provider Family Medicine; Emergency Provider Emergency Medicine; PCP Family Medicine; Visit Provider Specialist
PROC: 4A023N7 Measurement of Cardiac Sampling and Pressure, Left Heart, Percutaneous Approach (ICD-10-PCS; CPT 93452; principal; 2020-11-18 12:30)
PROC: 5A02210 Assistance with Cardiac Output using Balloon Pump, Continuous (ICD-10-PCS; 2020-11-18 12:30)
DX: I49.01 Ventricular fibrillation (principal); I46.2 Cardiac arrest due to underlying cardiac condition; I25.10 Atherosclerotic heart disease of native coronary artery without angina pectoris; I48.91 Unspecified atrial fibrillation; R09.02 Hypoxemia; I10 Essential (primary) hypertension; E11.9 Type 2 diabetes mellitus without complications; K21.9 Gastro-esophageal reflux disease without esophagitis; E78.5 Hyperlipidemia, unspecified; M17.0 Bilateral primary osteoarthritis of knee; R29.818 Other symptoms and signs involving the nervous system; Z86.16 Personal history of COVID-19
CPT/HCPCS: 31500; 33967; 36415; 36600; 70450; 71045; 80053; 82375; 82805; 82948; 83050; 83605; 83735; 83880; 84443; 84484; 85025; 85610; 85730; 92950; 93005; 93306; 93458; 94002; 96374; 99291; A9270; C1887; C1894; C9113; J0282; J1644; J2001; J2250; J2704; J3010; J3475; J7030; J7050

== ENCOUNTER → 2021-01-13 10:58 | Outpatient (CLI) | payer OTHER, SELFPAY ==
--- NOTE | ~2021-01-13 | XR_ITS ---
XR chest 2V DATE: 01/13/2021 11:09 INDICATION: Acute lower respiratory infection TECHNIQUE: PA and lateral views COMPARISON: 11/18/2020 portable AP chest FINDINGS: Status post sternotomy. Cardiomegaly. No hilar or mediastinal enlargement. No pulmonary infiltrate or consolidation, pleural effusion or pulmonary vascular congestion or pneumo thorax. IMPRESSION: Status post sternotomy Cardiomegaly No active pulmonary disease Reviewed, dictated and finalized at location A.
== END ==
PROVIDERS: PCP Family Medicine; Visit Provider Family Medicine
DX: J22 Unspecified acute lower respiratory infection (principal); Z98.890 Other specified postprocedural states; I51.7 Cardiomegaly
CPT/HCPCS: 71046

== ENCOUNTER 2021-04-14 13:30 | Outpatient (RCR) | payer OTHER, SELFPAY ==
[2021-01-17 08:53] VITALS: PULSE 64
[2021-02-20 15:43] LABS: Glucose Point of Care 114 mg/dl (65-105)
[2021-02-20 15:43] LABS: Glucose Point of Care 116 mg/dl (65-105)
[2021-03-26 14:41] LABS: Glucose Point of Care 105 mg/dl (65-105)
== END 2021-04-14 18:48 | disposition home or self-care (01) ==
LOC: ANHCPREHAB 13:30
PROVIDERS: PCP Family Medicine; Visit Provider Specialist
DX: Z95.1 Presence of aortocoronary bypass graft (principal)
CPT/HCPCS: 82948; 93798

== ENCOUNTER 2021-08-22 23:08 | Observation (INO) | payer OTHER, SELFPAY ==
--- NOTE | ~2021-08-22 | CT_ITS ---
EXAMINATION: CT brain wo con DATE: 08/23/2021 00:08 INDICATION: Frontal headache. Hypertension. TECHNIQUE: Computed tomography (CT) of the head was performed without intravenous contrast. The mA wa s adjusted according to patient size. Iterative reconstruction technique was employed. Exam dose: 68 1.00 mGy-cm total exam DLP. COMPARISON: 11/17/2020 CT brain FINDINGS: No intracranial mass lesion or hemorrhage or cerebrovascular accident. No midline shift or mass effect effect. Normal ventricular size. No subdural or epidural hematoma. The orbits are unremar kable. The included paranasal sinuses and mastoid air cells are normally developed and aerated. No fracture or bone destruction of the cranial vault. IMPRESSION: No significant abnormality Reviewed, dictated and finalized at [facility] Reviewed, dictated and finalized at [facility] BILITATION SERVICES COUNSELOR IMPRESSION: No significant abnormality
[2021-08-22 23:12] VITALS: BP 206/123; PULSE 67; RESP 18; TEMP 36.1; O2SAT 97
--- NOTE | 2021-08-22 23:33 | ECG_ITS ---
Measurements Intervals [place] Rate: 59 P: 2 NM: 165 QRS: 44 QRSD: 102 T: 19 QT: 429 QTc: 427 Interpretive Statements SINUS BRADYCARDIA BORDERLINE R WAVE PROGRESSION, ANTERIOR LEADS MINIMAL Q WAVES- INFERIOR LEADS T WAVE ABNORMALITY IN ANTERIOR LEADS- CONSIDER ISCHEMIA BASELINE ARTIFACT- II, III, AVF, V1, V3-V6 ABNORMAL ECG Electronically Signed On 08-23-2021 7:47:36 [employer] by Nash Murrell D.O.
--- NOTE | 2021-08-22 23:33 | ED.HA ---
HPI - Headache General Chief Complaint: Headache <Amadou Abdi MD - Last Filed: 08/22/21 23:34> Stated Complaint: Headaches, unable to sleep <Amadou Abdi MD - Last Filed: 08/22/21 23:34> Time Seen by Provider: 08/22/21 23:30 <Amadou Abdi MD - Last Filed: 08/22/21 23:34> Source: patient <Amadou Abdi MD - Last Filed: 08/22/21 23:34> Mode of arrival: ambulatory <Amadou Abdi MD - Last Filed: 08/22/21 23:34> Limitations: no limitations <Amadou Abdi MD - Last Filed: 08/22/21 23:34> History of Present Illness HPI Narrative: Patient is a 61-year-old male complaining of elevated blood pressure accompanied by a headache at home started tonight. Patient states that his headache is generalized, 6 out of 10, dull, nonradiating. Patient states that he has a history of hypertension. Patient denies any speech or visual disturbance, focal weakness or numbness, unsteady gait, dizziness, chest pain, shortness of breath, abdominal pain, nausea, vomiting, diaphoresis, fever or chills <Amadou Abdi MD - Last Filed: 08/22/21 23:34> Related Data Home Medications: Home Medications Medication Instructions Recorded Confirmed atorvastatin 80 mg tablet 80 mg PO DAILY 12/04/20 08/23/21 aspirin 81 mg tablet,delayed 81 mg PO DAILY 12/06/20 08/23/21 release metoprolol succinate 50 mg 50 mg PO DAILY 01/10/21 08/23/21 tablet,extended release 24 hr glucosamine-chondroitin [Osteo 2 tablet PO BID 01/17/21 08/23/21 Bi-Flex] <Amadou Abdi MD - Last Filed: 08/22/21 23:34> Allergies/Adverse Reactions: Allergies Allergy/AdvReac Type Severity Reaction Status Date / Time No Known Allergies Allergy Verified 08/22/21 23:37 <Amadou Abdi MD - Last Filed: 08/22/21 23:34> Review of Systems Review of Systems: All systems reviewed & are unremarkable except as noted in HPI and below <Amadou Abdi MD - Last Filed: 08/22/21 23:34> Constitutional: Constitutional: Denies body ache(s), Denies chills, Denies excessive sweating, Denies fatigue, Denies fever(s), Denies headache(s), Denies lethargy, Denies malaise, Denies weakness and Denies weight loss <Amadou Abdi MD - Last Filed: 08/22/21 23:34> Eyes: Eyes: Denies blurry vision, Denies change in vision and Denies loss of vision <Amadou Abdi MD - Last Filed: 08/22/21 23:34> ENT: Denies dizziness, Denies ear discharge, Denies headache(s), Denies lip swelling, Denies epistaxis, Denies nasal congestion, Denies neck pain, Denies throat swelling and Denies tongue swelling <Amadou Abdi MD - Last Filed: 08/22/21 23:34> Cardiovascular: Cardiovascular: Denies chest pain, Denies chest pain at rest, Denies chest pain with activity, Denies diaphoresis, Denies rapid heart rate, Denies edema, Denies irregular heart rhythm, Denies lightheadedness, Denies palpitations, Denies dyspnea and Denies dyspnea on exertion <Amadou Abdi MD - Last Filed: 08/22/21 23:34> Respiratory: Respiratory: Denies chest congestion, Denies cough, Denies hemoptysis, Denies dyspnea and Denies dyspnea on exertion <Amadou Abdi MD - Last Filed: 08/22/21 23:34> Gastrointestinal: Gastrointestinal: Denies abdominal pain, Denies melena, Denies hematochezia, Denies diarrhea, Denies nausea, Denies vomiting and Denies hematemesis <Amadou Abdi MD - Last Filed: 08/22/21 23:34> Musculoskeletal: Musculoskeletal: Denies abnormal gait, Denies deformity, Denies joint swelling, Denies limited range of motion, Denies neck pain and Denies numbness <Amadou Abdi MD - Last Filed: 08/22/21 23:34> Neurologic: Denies Abnormal speech present, Denies abnormal gait, Denies confusion, Denies dizziness, Denies focal weakness, Denies loss of vision, Denies numbness, Denies Other visual disturbances, Denies Sensory deficit (Neuro) and Denies weakness <Amadou Abdi MD - Last Filed: 08/22/21 23:34> Psychiatri
[2021-08-22 23:37] VITALS: BP 228/201; PULSE 60; RESP 20; TEMP 36.6; O2SAT 99
[2021-08-22 23:47] VITALS: BP 224/117
[2021-08-22] MEDS: LABETALOL HCL INJ 100 MG/20 ML VIAL 20 MG IV PUSH (23:49)
[2021-08-23] VITALS (18 sets, daily range): BP systolic 182–214; BP diastolic 94–116; PULSE 57–100; RESP 15–22; TEMP 36.1–37.2; O2SAT 95–98
[2021-08-23 00:08] LABS: Basophils Percent Auto 0.6 % (0.2-1.2); Eosinophils Absolute Auto 0.3 K/mm3 (0-0.3); Eosinophils Percent Auto 5.1 % (0-4.4); Hematocrit 42.1 % (42.0-52.0); Immature Granulocyte Absolute 0.04 K/mm3 (0.00-0.031); Immature Granulocyte Percent A 0.6 % (0-0.5); Lymphocytes Absolute Auto 1.76 K/mm3 (0.9-3.2); Lymphocytes Percent Auto 26.3 % (18.3-44.2); Mean Corpuscular HGB Conc 33.3 g/dl (32-36); Mean Corpuscular Hemoglobin 27.4 pg (26-34); Mean Corpuscular Volume 82.4 fl (80-100); Mean Platelet Volume 11.1 fl (7.4-10.4); Monocytes Absolute Auto 0.6 K/mm3 (0.1-0.6); Neutrophils Absolute Auto 3.9 K/mm3 (1.3-6.7); Neutrophils Percent Auto 58.4 % (45.5-73.1); Platelet Count Result 200 k/mm3 (150-375); Red Blood Count 5.11 M/mm3 (4.6-6.20); Red Cell Distribution Width 13.7 % (11.5-14.5); White Blood Count 6.7 K/mm3 (4.5-10.0)
[2021-08-23 00:37] LABS: Alanine Aminotransferase 43 U/L (4-50); Albumin Level 4.4 g/dL (3.5-5.1); Alkaline Phosphatase 103 U/L (38-126); Anion Gap 13 mmol/L (8-16); Aspartate Amino Transferase 37 U/L (17-59); Bilirubin,Total 0.5 mg/dL (0.2-1.3); Blood Urea Nitrogen 28 mg/dL (9-20); Calcium 9.6 mg/dL (8.4-10.2); Carbon Dioxide 23 mmol/L (22-30); Chloride 103 mmol/L (98-107); Estimated CRCL calculation 89 ml/min; Estimated Glomerular Filt Rate > 60; Glucose 140 mg/dL (65-110); Potassium 3.9 mmol/L (3.4-5.0); Sodium 139 mmol/L (137-145)
[2021-08-23] MEDS: MORPHINE SULFATE (*CRX) 4 MG/ML INJ IV PUSH (00:41)
[2021-08-23 00:49] LABS: Troponin I < 0.012 ng/mL (0.000-0.034)
[2021-08-23] MEDS: hydrALAZINE HCL 20 MG/ML VIAL 10 MG IV PUSH ×2 (01:07→02:26)
--- NOTE | 2021-08-23 02:27 | PM.IMHP ---
H&P: HPI History of Present Illness Date/Time: 08/23/21 02:27 Chief Complaint: Headache Narrative: This is a 61-year-old male with past medical history significant for coronary artery disease status post coronary artery bypass graft 3 vessel disease, ventricular fibrillation cardiac arrest, hypertension, type 2 diabetes mellitus on oral agents. Patient presents to the emergency room today due to pain in the occipital area with radiation to the neck area patient tried to take his blood pressure at home but his manometer was not reading and decided to come to the emergency room in emergency room blood pressure was found to be systolic in the 200s for which patient received labetalol and morphine. Patient describes his pain as localized to the back of his head and neck no vision changes, no nausea, no vomiting, no chest pain, no dizziness ,no lightheadedness, no leg swelling or ankle swelling, no palpitations, no PND ,no orthopnea ,no claudication, no syncope or near syncope, no cough. Preliminary workup was unrevealing. Decision has been made to admit the patient for further evaluation management and treatment. Review of Systems Review of Systems: Occipital headache Constitutional: Constitutional: Denies fatigue, Denies fever(s) and Denies night sweats Eyes: Eyes: Denies change in vision ENT: Denies dysphagia, Denies vertigo, Denies dizziness, Reports headache(s), Denies nasal congestion, Denies nasal discharge, Denies nasal obstruction and Denies odynophagia Cardiovascular: Cardiovascular: Denies chest pain, Denies irregular heart rhythm, Denies claudication, Denies leg edema, Denies lightheadedness, Denies radiating jaw, neck or arm pain, Denies palpitations, Denies dyspnea on exertion and Denies orthopnea Respiratory: Respiratory: Denies cough, Denies excessive phlegm production and Denies dyspnea Gastrointestinal: Gastrointestinal: Denies abdominal pain, Denies dyspepsia, Denies heartburn, Denies diarrhea, Denies nausea and Denies vomiting Genitourinary: Genitourinary: Denies dysuria Musculoskeletal: Musculoskeletal: Denies back pain, Denies myalgias, Denies arthralgias, Denies joint swelling and Reports neck pain Integumentary/Breasts: Skin/Breast: Denies rash Neurologic: Denies vertigo, Denies dizziness, Denies syncope, Reports headache(s) (Occipital), Denies lack of coordination, Denies focal weakness, Denies Sensory deficit (Neuro) and Denies weakness Psychiatric: Psychiatric: Reports no additional psychiatric complaints and Reports as per HPI Endocrine: Endocrine: Denies cold intolerance, Denies excessive sweating, Denies fatigue, Denies heat intolerance, Denies polyphagia, Denies polydipsia, Denies polyuria and Denies palpitations Hematologic/Lymphatic: Hematologic/Lymphatic: Reports no additional hematologic/lymphatic complaints and Reports as per HPI Allergic/Immunologic: Allergic/Immunologic: Reports no additional allergic/immunologic complaints and Reports as per HPI PMFSH Past Medical History Medical History Atrial fibrillation Cardiac arrest with ventricular fibrillation COVID-19 (~06/2020) Gastroesophageal reflux disease Hyperlipidemia Hypertension Normal colonoscopy (~2016) Osteoarthritis of both knees Type 2 diabetes mellitus Hemoglobin A1c was 6.5% on 11/12/2020. Surgical History Surgical History History of surgery on right wrist ORIF right wrist fracture. Hx of CABG Open heart Family History Family History Father Hypertension Diabetes mellitus High cholesterol Mother Diabetes mellitus Heart disease High cholesterol Hypertension Primary idiopathic dilated cardiomyopathy Sibling Breast cancer Grandparent Carcinoma of colon Social History Social History Social Histor
--- NOTE | 2021-08-23 03:21 | PC.NURSE ---
This patient, Umesh Magaña, was admitted to IMU Room 206-01. Patient/family oriented to hospital policies and general routines including ID bracelet, bed and alarms, visiting hours, pain management, procedures, bathroom and other care routines, personal items, smoking policy, room service/diet, and visiting hours. Information on how to activate the Rapid Response Team has been discussed. Patient/Family are encouraged to report perceived risks to care and to ask questions if they do not understand what they are told or what they should do.
[2021-08-23] MEDS: ACETAMINOPHEN 325 MG TABLET 650 MG PO ×2 (03:49→17:12)
[2021-08-23] MEDS: SALINE 0.65% NAS SOLN 44 ML BTL 1 SPRAY NASAL (07:12)
[2021-08-23] MEDS: PANTOPRAZOLE 40 MG TABLET PO (08:23)
[2021-08-23] MEDS: ASPIRIN 81 MG ENTERIC TABLET PO (08:23)
[2021-08-23 08:49] LABS: Glucose Point of Care 138 mg/dl (65-105)
--- NOTE | 2021-08-23 10:55 | PM.IMPN ---
Progress Note: A&P Assessment and Plan (1) Hypertensive emergency without congestive heart failure: Code(s): I16.1 - Hypertensive emergency Status: Acute Assessment and Plan: Admit to telemetry unit Cultures normalization of blood pressure Permissive hypertension tension Goal is 130/80 Continue hydralazine p.r.n. Resume home meds Cardiology consult with Head CT negative for headache Only on metoprolol at home Will initiate other antihypertensive next losartan and amlodipine combination therapy will give 1st dose of losartan now on amlodipine later today was blood pressure He used to be on telmisartan hydrochlorothiazide combination and past before his bypass surgery (2) Coronary artery disease involving autologous vein coronary bypass graft without angina pectoris: Code(s): I25.810 - Atherosclerosis of coronary artery bypass graft(s) without angina pectoris Status: Acute Assessment and Plan: Chest pain-free Continue home meds Status post bypass (3) Type 2 diabetes mellitus: Code(s): E11.9 - Type 2 diabetes mellitus without complications Status: Acute Assessment and Plan: Accu-Cheks AC and HS Holding metformin Insulin sliding scale as needed 1800 a calorie restricted diet consistent (4) Hyperlipidemia: Code(s): E78.5 - Hyperlipidemia, unspecified Status: Acute Assessment and Plan: Continue statin (5) Gastroesophageal reflux disease: Code(s): K21.9 - Gastro-esophageal reflux disease without esophagitis Status: Acute Assessment and Plan: Continue PPI Subjective Date/time seen: 08/23/21 10:55 Interval history: HPI:This is a 61-year-old male with past medical history significant for coronary artery disease status post coronary artery bypass graft 3 vessel disease, ventricular fibrillation cardiac arrest, hypertension, type 2 diabetes mellitus on oral agents. Patient presents to the emergency room today due to pain in the occipital area with radiation to the neck area patient tried to take his blood pressure at home but his manometer was not reading and decided to come to the emergency room in emergency room blood pressure was found to be systolic in the 200s for which patient received labetalol and morphine. Patient describes his pain as localized to the back of his head and neck no vision changes, no nausea, no vomiting, no chest pain, no dizziness ,no lightheadedness, no leg swelling or ankle swelling, no palpitations, no PND ,no orthopnea ,no claudication, no syncope or near syncope, no cough. Preliminary workup was unrevealing. Decision has been made to admit the patient for further evaluation management and treatment. 08/18/2021 headache is slightly present blood pressure is little better he is not compliant with his diet his states no leg swelling no chest pains Review of Systems Review of Systems: All systems reviewed & are unremarkable except as noted in HPI and below (HPI) Exam Narrative: GENERAL: The patient is well developed, not in acute distress HEENT: Nonicteric sclerae, PERRLA, EOMI. Oropharynx clear. Moist mucous membranes. Conjunctivae appear well perfused. CHEST: Chest wall is nontender. HEART: Regular rate and rhythm without murmur, rubs, or gallops LUNGS: Clear to auscultation bilaterally. no respiratory distress ABDOMEN: Soft, positive bowel sounds, non-tender, no organomegaly. SKIN: No rash, no excessive bruising, petechiae, or purpura. NEUROLOGIC: Cranial nerves II-XII intact, alert and oriented x 3, no gross motor deficits EXTREMITIES: no edema, cyanosis or clubbing Extrem: General: normal exam except as noted and no edema Objective Data Vital Signs Vital Signs: Vital Signs - 24 hr 08/22/21 23:12 08/22/21 23:37 08/22/21 23:47 Temperature 97.0 F L 97.9 F Pulse Rate 67 60 Respiratory Rate 18 20 Blood Pressure 206/123 H 228/201 H 224/117 H Pulse Oximetry 97 99 08/23/21 01:02 08/23/21 02:01 1
[2021-08-23] MEDS: LOSARTAN POTASSIUM 25 MG TABLET PO (12:25)
[2021-08-23 12:39] LABS: Glucose Point of Care 131 mg/dl (65-105)
--- NOTE | 2021-08-23 15:37 | PM.CNCAR ---
Assessment and Plan Assessment and plan (1) CAD (coronary artery disease): Code(s): I25.10 - Atherosclerotic heart disease of [place] coronary artery without angina pectoris Status: Acute Assessment and Plan: Status post 3 vessel CABG earlier this year. Asymptomatic. Continue aspirin, statin, metoprolol (2) Hypertensive emergency without congestive heart failure: Code(s): I16.1 - Hypertensive emergency Status: Acute Assessment and Plan: With headache. Blood pressure is still elevated but improved. Agree with current treatment plan per hospitalist including addition of losartan as well as amlodipine. Continue metoprolol. If blood pressure is reasonable tomorrow he may be discharged. He has follow-up with Dr. Diggs in August (3) Hypertension associated with diabetes: Code(s): E11.59 - Type 2 diabetes mellitus with other circulatory complications; I15.2 - Hypertension secondary to endocrine disorders Status: Acute Assessment and Plan: Continue current meds (4) Hyperlipidemia associated with type 2 diabetes mellitus: Code(s): E11.69 - Type 2 diabetes mellitus with other specified complication; E78.5 - Hyperlipidemia, unspecified Status: Acute Assessment and Plan: On high-dose statin History of Present Illness History of Present Illness Consult date/time: 08/23/21 15:37 Requesting physician: Андрей Ash MD Consult reason: hypertension Reason For Visit: Hypertensive urgency Narrative: Reason consultation: Hypertensive emergency Requesting provider: Dr. Ash Date of service 08/23/2021 History: Patient is a 61-year-old male patient of Dr. Diggs. He had a out of hospital cardiac arrest back in October of 2020. He was resuscitated, brought to this hospital where he underwent a cardiac catheterization. He was found have significant multivessel coronary disease and was transferred to [place] for CABG. He received a WEEKS to the LAD, SVG to the major diagonal branch as well as an SVG to a major OM. He has been followed in the office on a couple of occasions since that time and has been treated with high-dose atorvastatin, aspirin, metoprolol. He is participating in triathlons at this point and has been doing well. He however started developed a headache yesterday morning around noon. Headache was quite severe and in the occiput foot area. Took some Tylenol and did not feel any better. Incidentally he did have his COVID booster shot earlier in the week and has felt weak and overall poorly since then. His headache though was continuing and after conversing with his , he decided to come the hospital for further workup and evaluation. At the ER, h was found to have a blood pressure greater than 200 systolic. He was admitted for hypertensive emergency. He still continues to have a mild headache but overall is much better. Blood pressure is still elevated but improved. He otherwise denies any chest pain, shortness of breath, syncope, presyncope, paroxysmal nocturnal dyspnea, orthopnea, edema or palpitations. Review of Systems Review of Systems: All systems reviewed & are unremarkable except as noted in HPI and below Constitutional: Constitutional: Denies weakness Eyes: Eyes: Denies blurry vision ENT: Reports Normal hearing present Cardiovascular: Cardiovascular: Denies chest pain Respiratory: Respiratory: Denies dyspnea Gastrointestinal: Gastrointestinal: Denies abdominal pain Genitourinary: Genitourinary: Denies dysuria Musculoskeletal: Musculoskeletal: Denies neck pain Integumentary/Breasts: Skin/Breast: Denies dry skin Neurologic: Reports headache(s) Psychiatric: Psychiatric: Denies anxiety Endocrine: Endocrine: Denies fatigue Hematologic/Lymphatic: Hematologic/Lymphatic: Denies easy bleeding Allergic/Immunologic: Allergic/Immunologic: Denies GI upset with certain foods PMFSH Past Medical History Medical History
[2021-08-23 16:37] LABS: Glucose Point of Care 174 mg/dl (65-105)
[2021-08-23] MEDS: amLODIPine BESYLATE 5 MG TABLET PO (17:13)
[2021-08-23] MEDS: ATORVASTATIN 40 MG TABLET 80 MG PO (20:11)
[2021-08-23] MEDS: METOPROLOL SUCCINATE EXT REL 50 MG TABCR PO (20:12)
[2021-08-23 22:59] LABS: Glucose Point of Care 142 mg/dl (65-105)
[2021-08-23] MEDS: HYDROcodone/acetaminophen (*CRX) 5-325 MG TABLET 1 TAB PO (23:56)
[2021-08-24] VITALS (11 sets, daily range): BP systolic 161–176; BP diastolic 92–102; PULSE 55–96; RESP 12–22; TEMP 36.8–37.1; O2SAT 95–97
[2021-08-24 04:47] LABS: Basophils Percent Auto 0.5 % (0.2-1.2); Eosinophils Absolute Auto 0.3 K/mm3 (0-0.3); Eosinophils Percent Auto 3.7 % (0-4.4); Hematocrit 44.5 % (42.0-52.0); Hemoglobin 14.5 g/dL (14.0-18.0); Immature Granulocyte Absolute 0.05 K/mm3 (0.00-0.031); Immature Granulocyte Percent A 0.6 % (0-0.5); Lymphocytes Absolute Auto 2.29 K/mm3 (0.9-3.2); Lymphocytes Percent Auto 29.4 % (18.3-44.2); Mean Corpuscular HGB Conc 32.6 g/dl (32-36); Mean Corpuscular Hemoglobin 27.5 pg (26-34); Mean Corpuscular Volume 84.3 fl (80-100); Mean Platelet Volume 10.9 fl (7.4-10.4); Monocytes Absolute Auto 0.7 K/mm3 (0.1-0.6); Monocytes Percent Auto 8.6 % (2.6-8.5); Neutrophils Absolute Auto 4.5 K/mm3 (1.3-6.7); Neutrophils Percent Auto 57.2 % (45.5-73.1); Platelet Count Result 209 k/mm3 (150-375); Red Blood Count 5.28 M/mm3 (4.6-6.20); Red Cell Distribution Width 14.2 % (11.5-14.5); White Blood Count 7.8 K/mm3 (4.5-10.0)
[2021-08-24 05:00] LABS: Anion Gap 10 mmol/L (8-16); Blood Urea Nitrogen 22 mg/dL (9-20); Calcium 9.1 mg/dL (8.4-10.2); Carbon Dioxide 29 mmol/L (22-30); Chloride 103 mmol/L (98-107); Estimated CRCL calculation 65 ml/min; Estimated Glomerular Filt Rate > 60; Glucose 128 mg/dL (65-110); Potassium 3.7 mmol/L (3.4-5.0); Sodium 142 mmol/L (137-145)
[2021-08-24] MEDS: LOSARTAN POTASSIUM 25 MG TABLET PO ×2 (08:38→11:21)
[2021-08-24] MEDS: ASPIRIN 81 MG ENTERIC TABLET PO (08:38)
[2021-08-24] MEDS: PANTOPRAZOLE 40 MG TABLET PO (08:38)
[2021-08-24 09:01] LABS: Glucose Point of Care 126 mg/dl (65-105)
--- NOTE | 2021-08-24 10:35 | PM.PNCARD ---
Progress Note: A&P Assessment and Plan (1) CAD (coronary artery disease): Code(s): I25.10 - Atherosclerotic heart disease of [place] coronary artery without angina pectoris Status: Acute Assessment and Plan: Status post 3 vessel CABG earlier this year. Asymptomatic. Continue aspirin, statin, metoprolol (2) Hypertensive emergency without congestive heart failure: Code(s): I16.1 - Hypertensive emergency Status: Acute Assessment and Plan: Blood pressure is still elevated but improved. Agree with current treatment plan per hospitalist including addition of losartan as well as amlodipine. Continue metoprolol. If blood pressure is reasonable this afternoon, he may be discharged. He has follow-up with Dr. Diggs in August (3) Hypertension associated with diabetes: Code(s): E11.59 - Type 2 diabetes mellitus with other circulatory complications; I15.2 - Hypertension secondary to endocrine disorders Status: Acute Assessment and Plan: Continue current meds. Will increase his losartan to 50 mg daily. Extra 25 mg dose x1 now. (4) Hyperlipidemia associated with type 2 diabetes mellitus: Code(s): E11.69 - Type 2 diabetes mellitus with other specified complication; E78.5 - Hyperlipidemia, unspecified Status: Acute Assessment and Plan: On high-dose statin Subjective Date/time seen: 08/24/21 10:35 Interval history: HPI:This is a 61-year-old male with past medical history significant for coronary artery disease status post coronary artery bypass graft 3 vessel disease, ventricular fibrillation cardiac arrest, hypertension, type 2 diabetes mellitus on oral agents. He presents to the hospital with headache and elevated blood pressure Date of service 08/24/2021: Blood pressure is better but still elevated. No chest pain. No shortness breath. Headache has resolved Review of Systems Review of Systems: All systems reviewed & are unremarkable except as noted in HPI and below Constitutional: Constitutional: Denies fatigue, Reports headache(s) and Denies weakness Eyes: Eyes: Denies blurry vision ENT: Reports Normal hearing present, Reports headache(s) and Denies neck pain Cardiovascular: Cardiovascular: Denies chest pain and Denies dyspnea Respiratory: Respiratory: Denies dyspnea Gastrointestinal: Gastrointestinal: Denies abdominal pain Genitourinary: Genitourinary: Denies dysuria Musculoskeletal: Musculoskeletal: Denies neck pain Integumentary/Breasts: Skin/Breast: Denies dry skin Neurologic: Reports Normal hearing present, Reports headache(s) and Denies weakness Psychiatric: Psychiatric: Denies anxiety Endocrine: Endocrine: Denies fatigue Hematologic/Lymphatic: Hematologic/Lymphatic: Denies easy bleeding Allergic/Immunologic: Allergic/Immunologic: Denies GI upset with certain foods Exam Narrative: Awake alert oriented appears stated age Const: General: comfortable and no acute distress HENMT: General nose exam: Normal nares present Eyes: Sclera: sclerae normal Neck: Neck: supple and no JVD Chest: Other: No reproducible chest wall pain to palpation Resp: Auscultation: clear to auscultation bilaterally Cardio: Rate: regular rate Rhythm: regular rhythm GI: Inspection: non-distended Auscultation: normal bowel sounds Skin: General skin exam: normal color Neuro: Cranial nerves: Yes Normal hearing present Cognition (Neuro): normal cognition Speech: normal speech Extrem: General: normal to inspection Psych: Mental Status: mental status grossly normal Objective Data Vital Signs Vital Signs: Vital Signs - 24 hr 08/23/21 12:00 08/23/21 14:00 08/23/21 16:00 Temperature 36.6 C 36.6 C Pulse Rate 63 60 62 Respiratory Rate 22 H 16 Blood Pressure 192/95 H 195/97 H Pulse Oximetry 97 96 08/23/21 20:00 08/23/21 20:12 08/23/21 21:15 Temperature 37.2 C Pulse Rate 64 100 80 Respiratory Rate 21 H 21 H Blood P
[2021-08-24 13:16] LABS: Glucose Point of Care 119 mg/dl (65-105)
[2021-08-24] MEDS: amLODIPine BESYLATE 5 MG TABLET PO (14:36)
--- NOTE | 2021-08-24 16:30 | PM.DS ---
DS: Admitting Diagnosis Discharge Date 08/24/21 Admitting Diagnosis hypertension urgency DS: Discharge Diagnosis Discharge Diagnosis (1) Hypertensive emergency without congestive heart failure: Code(s): I16.1 - Hypertensive emergency Status: Acute Assessment and Plan: Admitted to telemetry unit Permissive hypertension tension Goal is 130/80 Continue hydralazine p.r.n. Resumed home meds Cardiology consult and apprecaite their recommendaations. Head CT negative for headache Only on metoprolol at home initiated other antihypertensive next losartan and amlodipine combination therapy and slowly titrated his bp mediations to help withhis bp to a rasonable level. further titration as op baiss. He used to be on telmisartan hydrochlorothiazide combination and past before his bypass surgery (2) Coronary artery disease involving autologous vein coronary bypass graft without angina pectoris: Code(s): I25.810 - Atherosclerosis of coronary artery bypass graft(s) without angina pectoris Status: Acute Assessment and Plan: Chest pain-free Continue home meds Status post bypass (3) Type 2 diabetes mellitus: Code(s): E11.9 - Type 2 diabetes mellitus without complications Status: Acute Assessment and Plan: Accu-Cheks AC and HS Holding metformin Insulin sliding scale as needed 1800 a calorie restricted diet consistent (4) Hyperlipidemia: Code(s): E78.5 - Hyperlipidemia, unspecified Status: Acute Assessment and Plan: Continue statin (5) Gastroesophageal reflux disease: Code(s): K21.9 - Gastro-esophageal reflux disease without esophagitis Status: Acute Assessment and Plan: Continue PPI DS: Summary Hospital Course Hospital Course: see above Time Spent with Patient Time attestation: Total time spent providing and/or coordinating discharge services:40 mins Exam Narrative: GENERAL: The patient is well developed, not in acute distress HEENT: Nonicteric sclerae, PERRLA, EOMI. Oropharynx clear. Moist mucous membranes. Conjunctivae appear well perfused. CHEST: Chest wall is nontender. HEART: Regular rate and rhythm without murmur, rubs, or gallops LUNGS: Clear to auscultation bilaterally. no respiratory distress ABDOMEN: Soft, positive bowel sounds, non-tender, no organomegaly. SKIN: No rash, no excessive bruising, petechiae, or purpura. NEUROLOGIC: Cranial nerves II-XII intact, alert and oriented x 3, no gross motor deficits EXTREMITIES: no edema, cyanosis or clubbing DS: Data Data Completed and Pending Labs on day of discharge: Labs from last 24 hours 08/24/21 08/24/21 12:03 07:29 POC Capillary Glucose 119 H 126 H Imaging Radiologist's impression: ITS Impressions Head CT 08/23/21 11:08 IMPRESSION: No significant abnormality Discharge Plan Discharge Attending physician on discharge: Usman Diaz Consulting providers: Law Sahu Discharging Clinician: Usman Diaz Anticipated Discharge Date/Time: 08/24/21 14:00 Patient Disposition: Home, Self-Care Activity: as tolerated Diet: heart healthy and low sodium Patient Instructions: Antibiotic Form, Amlodipine (By mouth), Losartan (By mouth) Stand Alone Forms: General Discharge Information Follow-up/Referrals: Kelly Carlisle MD [Primary Care Provider] - 1 Week Axel Diggs MD [Physician] - Keep Reg. Scheduled Appt. Discharge Medications: New amlodipine [Norvasc] 5 mg Tablet 5 mg PO BID Qty: 60 RF: 0 losartan 25 mg Tablet 50 mg PO DAILY Qty: 30 RF: 0 Continued atorvastatin 80 mg tablet 80 mg PO DAILY RF: 0 aspirin 81 mg tablet,delayed release (DR/EC) 81 mg PO DAILY RF: 0 metoprolol succinate 50 mg tablet extended release 24 hr 50 mg PO DAILY RF: 0 glucosamine-chondroitin [Osteo Bi-Flex] 250-200 mg Tablet 2 tablet PO BID RF: 0 metformin 1,000 mg tablet 1,000 mg PO
== END 2021-08-24 16:25 | disposition home or self-care (01) ==
LOC: ANHED 08-23 00:03 → ANHIMU 08-23 12:07
PROVIDERS: Admitting Provider Internal Medicine; Emergency Provider Emergency Medicine; PCP Family Medicine; Visit Provider Internal Medicine
DX: I16.1 Hypertensive emergency (principal); R51.9 Headache, unspecified; I48.91 Unspecified atrial fibrillation; E11.59 Type 2 diabetes mellitus with other circulatory complications; I15.2 Hypertension secondary to endocrine disorders; E78.5 Hyperlipidemia, unspecified; K21.9 Gastro-esophageal reflux disease without esophagitis; I25.10 Atherosclerotic heart disease of native coronary artery without angina pectoris; Z86.16 Personal history of COVID-19; Z95.1 Presence of aortocoronary bypass graft; Z79.84 Long term (current) use of oral hypoglycemic drugs; Z79.82 Long term (current) use of aspirin
CPT/HCPCS: 36415; 70450; 80048; 80053; 82948; 84484; 85025; 93005; 96374; 96375; 96376; 99285; A9270; G0378; J0360; J1815; J2270

== ENCOUNTER 2023-02-24 02:38 | Day surgery (SDC) | payer OTHER, SELFPAY ==
[2023-02-12 14:25] VITALS: BMI 31.2
--- NOTE | 2023-02-23 13:04 | PM.HPGS ---
History of Present Illness History of Present Illness Consent: Risks, benefits, and alternatives have been discussed and questions answered. Patient agrees to proceed with procedure. Chief complaint: neoplasm screening Narrative: Umesh Magaña is a 63 year old male referred for colon cancer screening. Review of Systems Review of Systems: All systems reviewed & are unremarkable except as noted in HPI and below PMFSH Past Medical History Medical History Atrial fibrillation Cardiac arrest with ventricular fibrillation COVID-19 (~06/2020) Gastroesophageal reflux disease Hyperlipidemia Hypertension Normal colonoscopy (~2016) Osteoarthritis of both knees Type 2 diabetes mellitus Hemoglobin A1c was 6.5% on 11/12/2020. Surgical History Surgical History History of surgery on right wrist ORIF right wrist fracture. Hx of CABG Open heart Family History Family History Father Hypertension Diabetes mellitus High cholesterol Mother Diabetes mellitus Heart disease High cholesterol Hypertension Primary idiopathic dilated cardiomyopathy Sibling Breast cancer Grandparent Carcinoma of colon Social History Social History Social History: Surrogate decision maker: Alexsandra Magaña, . Code status: Full code. Smoking status: Never smoker Second hand tobacco smoke exposure: No Alcohol intake: current Alcohol use details: 1 drink monthly Substance use: never Substance use type: does not use Lack of Transportation: No Lack of Food: Never True Current Housing: I Have Housing Concerned About Future Housing: No Difficulty Paying Gas/Electric Bills: No Difficulty Paying for Meds: No Currently Unemployed: No Education: Bachelor's Degree Difficulty w/ Childcare or Family Care: No Living arrangements: with family Additional living arrangements comments: Lives in [place] with his . 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 Sexual Orientation (if Verbalized by the Patient): Straight or Heterosexual Spiritual care concerns: No Meds Home Medications and Allergies Home Medications Medication Instructions Recorded Confirmed Type atorvastatin 80 mg tablet 80 mg PO DAILY 12/04/20 02/12/23 History aspirin 81 mg tablet,delayed 81 mg PO DAILY 12/06/20 02/12/23 History release glucosamine-chondroitin 250 mg-200 2 tablet PO BID 01/17/21 02/12/23 History mg tablet (Osteo Bi-Flex) amlodipine 5 mg tablet (Norvasc) 5 mg PO BID #60 tabs 08/24/21 02/12/23 Rx losartan 25 mg tablet 50 mg PO DAILY #30 tabs 08/24/21 02/12/23 Rx metoprolol succinate 25 mg 25 mg PO DAILY 11/06/21 02/12/23 History tablet,extended release 24 hr metformin 1,000 mg tablet 1,000 mg PO BID #60 tabs 11/26/22 02/12/23 Rx esomeprazole magnesium 40 mg 40 mg PO DAILY #30 caps 02/01/23 02/12/23 Rx capsule,delayed release Allergies Allergy/AdvReac Type Severity Reaction Status Date / Time No Known Allergies Allergy Verified 02/24/23 06:35 Exam Const: General: alert Orientation/consciousness: patient oriented x3 Resp: Auscultation: clear to auscultation bilaterally Cardio: Rhythm: regular rhythm GI: GI Palp: Yes Soft to palpation and No Tenderness to palpation present (GI) Neuro: General: patient oriented x3 Assessment and Plan Assessment and plan (1) Colon cancer screening: Code(s): Z12.11 - Encounter for screening for malignant neoplasm of colon Status: Acute Assessment and Plan: Colonoscopy with possible biopsy or polypectomy or cautery or injection of substances.
[2023-02-24 06:36] VITALS: BP 124/84; PULSE 62; RESP 18; TEMP 36.1; O2SAT 96
[2023-02-24] MEDS: LACTATED RINGERS 1,000 ML 150 ML IV CONT (06:46)
[2023-02-24 06:48] LABS: Glucose Point of Care 145 mg/dl (65-105)
--- NOTE | 2023-02-24 07:06 | WPDANESEPPF ---
Anes - Initial Pre Proc Eval Procedure: Operation Date: 02/24/23 08:00 Proposed Procedures p Screening Colonoscopy - Ty Huff MD Date/Time: 02/24/23 07:06 Surgeon: Ty Huff MD Pre Op Diagnosis: neoplasm screening Patient Data Age: 63 Gender: M Height: 1.83 m Weight: 106.6 kg Last Vital Signs Temp 97 F L 02/24/23 06:36 Pulse 62 02/24/23 06:36 Resp 18 02/24/23 06:36 BP 124/84 02/24/23 06:36 Pulse Ox 96 02/24/23 06:36 O2 Del Method Room Air 02/24/23 06:36 Allergies Allergy/AdvReac Type Severity Reaction Status Date / Time No Known Allergies Allergy Verified 02/24/23 06:35 Home Medications Medication Instructions Recorded Confirmed Type atorvastatin 80 mg tablet 80 mg PO DAILY 12/04/20 02/12/23 History aspirin 81 mg tablet,delayed 81 mg PO DAILY 12/06/20 02/12/23 History release glucosamine-chondroitin 250 mg-200 2 tablet PO BID 01/17/21 02/12/23 History mg tablet (Osteo Bi-Flex) amlodipine 5 mg tablet (Norvasc) 5 mg PO BID #60 tabs 08/24/21 02/12/23 Rx losartan 25 mg tablet 50 mg PO DAILY #30 tabs 08/24/21 02/12/23 Rx metoprolol succinate 25 mg 25 mg PO DAILY 11/06/21 02/12/23 History tablet,extended release 24 hr metformin 1,000 mg tablet 1,000 mg PO BID #60 tabs 11/26/22 02/12/23 Rx esomeprazole magnesium 40 mg 40 mg PO DAILY #30 caps 02/01/23 02/12/23 Rx capsule,delayed release Laboratory Tests 02/24/23 06:40 POC Capillary Glucose 145 H mg/dl (65-105) Patient hx anesthesia problems: none Family hx anesthesia problems: none Results Review: All pre-operative results and documents have been reviewed as part of the pre-operative evaluation. [facility] Past Medical History Medical History Atrial fibrillation Cardiac arrest with ventricular fibrillation COVID-19 (~06/2020) Gastroesophageal reflux disease Hyperlipidemia Hypertension Normal colonoscopy (~2017) Osteoarthritis of both knees Type 2 diabetes mellitus Hemoglobin A1c was 6.5% on 11/12/2020. Surgical History Surgical History History of surgery on right wrist ORIF right wrist fracture. Hx of CABG Open heart Family History Family History Father Hypertension Diabetes mellitus High cholesterol Mother Diabetes mellitus Heart disease High cholesterol Hypertension Primary idiopathic dilated cardiomyopathy Sibling Breast cancer Grandparent Carcinoma of colon Social History Social History Social History: Surrogate decision maker: Alexsandra Magaña, . Code status: Full code. Smoking status: Never smoker Second hand tobacco smoke exposure: No Alcohol intake: current Alcohol use details: 1 drink monthly Substance use: never Substance use type: does not use Lack of Transportation: No Lack of Food: Never True Current Housing: I Have Housing Concerned About Future Housing: No Difficulty Paying Gas/Electric Bills: No Difficulty Paying for Meds: No Currently Unemployed: No Education: Bachelor's Degree Difficulty w/ Childcare or Family Care: No Living arrangements: with family Additional living arrangements comments: Lives in [place] with his . 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 Sexual Orientation (if Verbalized by the Patient): Straight or Heterosexual Spiritual care concerns: No Anes - Eval Final PreProcedure Day of Procedure 02/24/23 07:06 Patient weight: obese Heart: irregular rhythm Lungs: clear to auscultation Airway: Mallampati scale class II Neurological: alert and oriented Last oral intake: >/= 8 hours ASA classification: III Emergent: no Anesthetic plan: proceed Anesthesia type and monito
[2023-02-24 07:43] VITALS: BP 106/70; PULSE 64; RESP 15; O2SAT 97
[2023-02-24 07:53] VITALS: BP 120/69; PULSE 64; RESP 16; O2SAT 97
[2023-02-24 08:03] VITALS: BP 125/82; PULSE 65; RESP 20; O2SAT 95
== END 2023-02-24 08:13 | disposition home or self-care (01) ==
PROVIDERS: PCP Family Medicine; Visit Provider Internal Medicine Gastroenterology
PROC: 0DJD8ZZ Inspection of Lower Intestinal Tract, Via Natural or Artificial Opening Endoscopic (ICD-10-PCS; CPT 45378; principal; 2023-02-24 08:00)
DX: Z12.11 Encounter for screening for malignant neoplasm of colon (principal); K57.30 Diverticulosis of large intestine without perforation or abscess without bleeding; Z80.0 Family history of malignant neoplasm of digestive organs; I48.91 Unspecified atrial fibrillation; I10 Essential (primary) hypertension; E78.5 Hyperlipidemia, unspecified; K21.9 Gastro-esophageal reflux disease without esophagitis; E11.9 Type 2 diabetes mellitus without complications; Z95.1 Presence of aortocoronary bypass graft; I25.2 Old myocardial infarction; Z79.82 Long term (current) use of aspirin; Z79.84 Long term (current) use of oral hypoglycemic drugs
CPT/HCPCS: 45378; 82948; J2704; J7120

== ENCOUNTER 2024-03-12 10:14 | Emergency (ER) | payer BC, SELFPAY ==
--- NOTE | ~2024-03-12 | XR_ITS ---
EXAMINATION: XR hand LT min 3V, XR wrist LT min 3V DATE: 03/12/2024 10:59 INDICATION: Left hand and wrist pain post ground-level fall TECHNIQUE: 1. Posteroanterior, ulnar deviation, oblique, and lateral views of the left wrist were obtained. 2. Dorsal palmar, oblique and lateral views of the left hand were obtained. COMPARISON: None. FINDINGS: Alignment of the left hand and wrist is normal. No fracture identified. Mild polyarticular osteoarth ritis at multiple interphalangeal joints. Soft tissues are unremarkable. IMPRESSION: 1. Mild polyarticular osteoarthritis at multiple interphalangeal joints. No acute osseous abnormality at the left hand or wrist. Reviewed, dictated and finalized at location A. IMPRESSION: 1. Mild polyarticular osteoarthritis at multiple interphalangeal joints. No acu te osseous abnormality at the left hand or wrist.
[2024-03-12 10:17] VITALS: BP 144/85; PULSE 70; RESP 16; TEMP 36.6; O2SAT 98
--- NOTE | 2024-03-12 10:47 | ED.UPPEXIN ---
HPI - Extremity Injury (Upper) General Chief Complaint: Extremity Injury, Upper Stated Complaint: L hand injury Time Seen by Provider: 03/12/24 10:46 Source: patient and family Mode of arrival: ambulatory Limitations: no limitations History of Present Illness HPI narrative: Patient was trying to catch a baseball by left hand, subsequently developed swelling and bruises at the palmar side. He denies other injuries. This happened yesterday. Related Data Home Medications Medication Instructions Recorded Confirmed atorvastatin 80 mg tablet 80 mg PO DAILY 12/04/20 11/19/23 aspirin 81 mg tablet,delayed 81 mg PO DAILY 12/06/20 11/19/23 release glucosamine-chondroitin 250 mg-200 2 tablet PO BID 01/17/21 11/19/23 mg tablet (Osteo Bi-Flex) metoprolol succinate 25 mg 25 mg PO DAILY 11/06/21 11/19/23 tablet,extended release 24 hr Allergies Allergy/AdvReac Type Severity Reaction Status Date / Time No Known Allergies Allergy Verified 11/19/23 08:55 Review of Systems Review of Systems: All systems reviewed & are unremarkable except as noted in HPI and below PMFSH Past Medical History Medical History Atrial fibrillation Cardiac arrest with ventricular fibrillation COVID-19 (~06/2020) Gastroesophageal reflux disease Hyperlipidemia Hypertension Normal colonoscopy (~2016) Osteoarthritis of both knees Type 2 diabetes mellitus Hemoglobin A1c was 6.5% on 11/12/2020. Surgical History Surgical History History of surgery on right wrist ORIF right wrist fracture. Hx of CABG Open heart Family History Family History Father Hypertension Diabetes mellitus High cholesterol Mother Diabetes mellitus Heart disease High cholesterol Hypertension Primary idiopathic dilated cardiomyopathy Sibling Breast cancer Grandparent Carcinoma of colon Social History Social History Social History: Surrogate decision maker: Alexsandra Magaña, . Code status: Full code. Smoking status: Never smoker Second hand tobacco smoke exposure: No Alcohol intake: current Alcohol use details: 1 drink monthly Substance use: never Substance use type: does not use Lack of Transportation: No Lack of Food: Never True Current Housing: I Have Housing Concerned About Future Housing: No Difficulty Paying Gas/Electric Bills: No Difficulty Paying for Meds: No Currently Unemployed: No Education: Bachelor's Degree Difficulty w/ Childcare or Family Care: No Living arrangements: with family Additional living arrangements comments: Lives in [place] with his . 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 Sexual Orientation (if Verbalized by the Patient): Straight or Heterosexual Spiritual care concerns: No Exam Narrative: General appearance: Well-developed, well-nourished Skin: Normal color Musculoskeletal: Left hand showed diffuse swelling, bruises at the palmar side, slight limited range of motion. Neurologic: Alert and oriented ?3, CROSSING TENDER is normal as tested, no gross motor deficit Course Vital Signs Vital signs: Vital Signs Temperature 36.6 C 03/12/24 10:17 Pulse Rate 70 03/12/24 10:17 Respiratory Rate 16 03/12/24 10:17 Blood Pressure 144/85 H 03/12/24 10:17 Pulse Oximetry 98 03/12/24 10:17 Temperature 36.6 C 03/12/24 10:17 Pulse Rate 70 03/12/24 10:17 Respiratory Rate 16 03/12/24 10:17 Blood Pressure 14
[2024-03-12 12:58] VITALS: BP 144/85; PULSE 78; RESP 18; O2SAT 97
== END 2024-03-12 13:01 | disposition home or self-care (01) ==
PROVIDERS: Emergency Provider Emergency Medicine; PCP Family Medicine
DX: S60.222A Contusion of left hand, initial encounter (principal); I48.91 Unspecified atrial fibrillation; I10 Essential (primary) hypertension; E78.5 Hyperlipidemia, unspecified; E11.9 Type 2 diabetes mellitus without complications; M17.0 Bilateral primary osteoarthritis of knee; K21.9 Gastro-esophageal reflux disease without esophagitis; Z95.1 Presence of aortocoronary bypass graft; Z86.16 Personal history of COVID-19; Z79.82 Long term (current) use of aspirin; Z79.84 Long term (current) use of oral hypoglycemic drugs; Z79.85 Long-term (current) use of injectable non-insulin antidiabetic drugs; Z79.899 Other long term (current) drug therapy; M19.042 Primary osteoarthritis, left hand; W21.03XA Struck by baseball, initial encounter
CPT/HCPCS: 73110; 73130; 99283

== ENCOUNTER 2024-07-17 02:08 | Emergency (ER) | payer BC, SELFPAY ==
--- NOTE | ~2024-07-17 | CT_ITS ---
Non-contrast Head CT History: Head injury COMPARISON: 08/22/2021 Technique: Axial non-contrast imaging of the brain was performed. Dose reduction technique was used on this scan by utilizing automated exposure control and iterative reconstruction technique. The dose -length product (DLP) was 756.67 mGy-cm. Findings: There is no evidence of intracranial hemorrhage, mass lesion, or acute infarct. Brain par enchyma appears normal. The ventricles and subarachnoid spaces are normal in size. The calvarium ap pears normal. The visualized paranasal sinuses and mastoid air cells are clear. Impression: No significant abnormality seen. Reviewed, dictated and finalized at location . 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
--- NOTE | ~2024-07-17 | CT_ITS ---
Noncontrast CT scan of the cervical spine Technique: Multiple contiguous axial [address] images of the cervical spine were obtained and rec onstructed in 2D sagittal and coronal planes on the acquisition scanner. Dose reduction technique was used on this scan by utilizing automated exposure control, adjustment of the mA and/or kV according to patient size. The dose-length product (DLP) was 408.50 mGy-cm. Clinical History: Pain Findings: No fractures or dislocations. There is advanced degenerative disc narrowing at C6-C7, with uncovertebral degenerative changes lobe. There are minimal degenerative disc changes are again cervi renetta spine levels. There are scattered mild facet joint degenerative changes. No prevertebral soft tis bryan swelling. Impression: No fracture or subluxation of the cervical spine. Mild degenerative spondylosis. Reviewed, dictated and finalized at [facility]. Y [employer] Impression: No fracture or subluxation of the cervical spine. Mild degenerative spondylosis.
[2024-07-17 02:11] VITALS: BP 165/98; PULSE 72; RESP 18; TEMP 36.4; O2SAT 99
--- NOTE | 2024-07-17 02:17 | ECG_ITS ---
Test Date: 2024-07-17 02:21:17 Measurements Intervals [place] Rate: 65 P: 189 [place]: 176 QRS: 153 QRSD: 111 T: 173 QT: 413 QTc: 432 Interpretive Statements SINUS OR ECTOPIC ATRIAL RHYTHM LIMB LEAD REVERSAL ATYPICAL ECG No previous ECG available for comparison Electronically Signed On 07-17-2024 06:28:49 TEST CELL TECHNICIAN by Nash Murrell D.O.
[2024-07-17 02:19] VITALS: PULSE 66
[2024-07-17] MEDS: MECLIZINE HCL 25 MG TABLET PO (02:29)
--- NOTE | 2024-07-17 02:34 | ED_ITS ---
HPI - General Adult General Chief complaint: Dizziness Stated complaint: fall hit head a few days ago, dizzy Time Seen by Provider: 07/17/24 02:19 History of Present Illness HPI narrative: Patient is a 62-year-old gentleman who presents emergency department with chief complaint of headache and dizziness. Patient reports that he was playing pickleball and tripped and fell striking his head. Patient had positive loss of consciousness went to urgent care and was told if his symptoms worsen he should come to the emergency department the patient states tonight he got up had a spinning sensation reports that his headache was worse Related Data Home Medications Medication Instructions Recorded Confirmed atorvastatin 80 mg tablet 80 mg PO DAILY 12/04/20 05/25/24 aspirin 81 mg tablet,delayed 81 mg PO DAILY 12/06/20 05/25/24 release glucosamine-chondroitin 250 mg-200 2 tablet PO BID 01/17/21 05/25/24 mg tablet (Osteo Bi-Flex) metoprolol succinate 25 mg 25 mg PO DAILY 11/06/21 05/25/24 tablet,extended release 24 hr Allergies Allergy/AdvReac Type Severity Reaction Status Date / Time No Known Allergies Allergy Verified 07/17/24 02:15 Review of Systems Review of Systems: A 10 system review of systems was completed on the patient and is negative except for what is stated in the HPI. Nursing and ancillary documentation was reviewed. [facility] Past Medical History Medical History Atrial fibrillation Cardiac arrest with ventricular fibrillation COVID-19 (~06/2020) Gastroesophageal reflux disease Hyperlipidemia Normal colonoscopy (~2017) Osteoarthritis of both knees Type 2 diabetes mellitus Hemoglobin A1c was 6.5% on 11/12/2020. Surgical History Surgical History History of surgery on right wrist ORIF right wrist fracture. Hx of CABG Open heart Family History Family History Father Hypertension Diabetes mellitus High cholesterol Mother Diabetes mellitus Heart disease High cholesterol Hypertension Primary idiopathic dilated cardiomyopathy Sibling Breast cancer Grandparent Carcinoma of colon Social History Social History Social History: Surrogate decision maker: Alexsandra Magaña, . Code status: Full code. Smoking status: Never smoker Second hand tobacco smoke exposure: No Alcohol intake: current Alcohol use details: 1 drink monthly Substance use: never Substance use type: does not use Lack of Transportation: No Lack of Food: Never True Current Housing: I Have Housing Concerned About Future Housing: No Difficulty Paying Gas/Electric Bills: No Difficulty Paying for Meds: No Currently Unemployed: No Education: Bachelor's Degree Difficulty w/ Childcare or Family Care: No Living arrangements: with family Additional living arrangements comments: Lives in [place] with his . 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 Sexual Orientation (if Verbalized by the Patient): Straight or Heterosexual Spiritual care concerns: No Exam Narrative: GENERAL: Well-appearing, well-nourished, and in no acute distress. HEAD: Normocephalic, atraumatic. EYES: PERRLA and EOMI. ENT: Nares clear, no rhinorrhea or epistaxis. Mucous membranes moist. NECK: Supple. CHEST: Clear to auscultation. No respiratory distress. HEART: Regular rate and rhythm. No murmur heard. Normal peripheral pulses. ABDOMEN: Soft, nontender, nondistended, normal active bowel sounds. EXTREMITIES: Normal range of motion. No edema. SKIN: Warm, dry, no rash. NEURO: No focal deficits. Alert and oriented x3. PSYCH: Normal mood and affect. Course Vital Signs Vital signs: Vital Signs Temperature 36.4 C 07/17/24 02:11 Pulse Rate 72 07/17/24 02:11 Respiratory Rate 18 07/17/24 02:11 Blood Pressure 165/98 H 07/17/24 02:11 Pulse Oximetry 99 07/17/24 02:11 Oxygen Delivery Room Air 07/17/24 02:11 Temperature 36.4 C 07/17/24 02:11 Pulse Rate 66 07/17/24 02:19 Respiratory Rate 18 07/17/24 02:11 Blood Pressure 165/98 H 07/17/24 02:11 Pulse Oximetry 99 07/17/24 02:11 Oxygen Delivery Room Air 07/17/24 02:11 Medical Decision Making MDM Narrative Medical decision making narrative: Differential diagnosis includes intracranial hemorrhage, cervical spine fracture, vertigo Laboratory studies were obtained on the patient showed a normal CBC normal CMP EKG showed no acute changes CT head CT C-spine showed no acute findings Vital Signs Vital Signs: Vital Signs Temperature 36.4 C 07/17/24 02:11 Pulse Rate 72 07/17/24 02:11 Respiratory Rate 18 07/17/24 02:11 Blood Pressure 165/98 H 07/17/24 02:11 Pulse Oximetry 99 07/17/24 02:11 Oxygen Delivery Room Air 07/17/24 02:11 Temperature 36.4 C 07/17/24 02:11 Pulse Rate 66 07/17/24 02:19 Respiratory Rate 18 07/17/24 02:11 Blood Pressure 165/98 H 07/17/24 02:11 Pulse Oximetry 99 07/17/24 02:11 Oxygen Delivery Room Air 07/17/24 02:11 Lab Data 07/17/24 02:30 07/17/24 02:30 Labs: Lab Results 07/17/24 Range/Units 02:30 WBC 7.1 (4.5-10.0) K/mm3 RBC 5.08 (4.6-6.20) M/mm3 Hgb 14.6 (14.0-18.0) g/dL Hct 43.1 (42.0-52.0) % MCV 84.8 (80-100) fl MCH 28.7 (26-34) pg MCHC 33.9 (32-36) g/dl RDW 13.1 (11.5-14.5) % Plt Count 200 (150-375) k/mm3 MPV 10.7 H (7.4-10.4) fl Immature Gran % (Auto) 0.7 H (0-0.5) % Neut % (Auto) 55.1 (45.5-73.1) % Lymph % (Auto) 33.0 (18.3-44.2) % [place] % (Auto) 8.1 (2.6-8.5) % Eos % (Auto) 2.5 (0-4.4) % Baso % (Auto) 0.6 (0.2-1.2) % Lymph # (Auto) 2.35 (0.9-3.2) K/mm3 [place] # (Auto) 0.6 (0.1-0.6) K/mm3 Eos # (Auto) 0.2 (0-0.3) K/mm3 Baso # (Auto) 0.0 (0.0-0.1) K/mm3 Abs Immat Gran (auto) 0.05 H (0.00-0.031) K/mm3 Absolute Neuts (auto) 3.9 (1.3-6.7) K/mm3 Absolute Nucleated RBC 0.000 (0.0-0.012) K/mm3 Nucleated RBC % 0.0 (0.0-0.2) % Sodium 139 (137-145) mmol/L Potassium 4.0 (3.4-5.0) mmol/L Chloride 104 (98-107) mmol/L Carbon Dioxide 26 (22-30) mmol/L Anion Gap 9 (4-12) mmol/L BUN 29 H (9-20) mg/dL Creatinine 0.80 (0.7-1.3) mg/dL Estim Creat Clear Calc 103 ml/min Estimated GFR > 60 (59 - ) Glucose 115 H (65-110) mg/dL Calcium 9.4 (8.4-10.2) mg/dL Total Bilirubin 0.5 (0.2-1.3) mg/dL AST 34 (17-59) U/L ALT 31 (6-50) U/L Alkaline Phosphatase 91 (38-126) U/L Total Protein 8.0 (6.3-8.2) g/dL Albumin 4.6 (3.5-5.1) g/dL Discharge Plan Discharge Clinical Impression: Head injury, Dizziness Patient Disposition: Home, Self-Care Condition: Stable Instructions: Antibiotic Form, Head Injury (ED), Dizziness (ED) Prescriptions: New meclizine 25 mg tablet 25 mg PO TID PRN (Reason: dizziness) Qty: 21 0RF No Action atorvastatin 80 mg tablet 80 mg PO DAILY aspirin 81 mg tablet,delayed release (DR/EC) 81 mg PO DAILY metoprolol succinate 25 mg tablet extended release 24 hr 25 mg PO DAILY losartan 50 mg tablet 50 mg PO DAILY Qty: 30 0RF amlodipine [Norvasc] 5 mg Tablet 5 mg PO BID Qty: 60 0RF glucosamine-chondroitin [Osteo Bi-Flex] 250-200 mg Tablet 2 tablet PO BID esomeprazole magnesium 40 mg capsule,delayed release(DR/EC) 40 mg PO DAILY Qty: 30 5RF (DME) OneTouch Ultra Test Strip See Rx Instructions .ROUTE .COMPLEX Qty: 100 5RF Dose Instruction: TEST EVERY DAY Rx Instructions: TEST EVERY DAY Ozempic 1 mg/dose (4 mg/3 mL) pen injector 1 mg subcut WEEKLY Qty: 3 2RF metformin 1,000 mg tablet 1,000 mg PO BID Qty: 60 5RF Follow-up/Referrals: Kelly Carlisle MD [Primary Care Provider] - Time of Disposition: 03:34
[2024-07-17 02:35] LABS: Basophils Percent Auto 0.6 % (0.2-1.2); Eosinophils Absolute Auto 0.2 K/mm3 (0-0.3); Eosinophils Percent Auto 2.5 % (0-4.4); Hematocrit 43.1 % (42.0-52.0); Hemoglobin 14.6 g/dL (14.0-18.0); Immature Granulocyte Absolute 0.05 K/mm3 (0.00-0.031); Immature Granulocyte Percent A 0.7 % (0-0.5); Lymphocytes Absolute Auto 2.35 K/mm3 (0.9-3.2); Mean Corpuscular HGB Conc 33.9 g/dl (32-36); Mean Corpuscular Hemoglobin 28.7 pg (26-34); Mean Corpuscular Volume 84.8 fl (80-100); Mean Platelet Volume 10.7 fl (7.4-10.4); Monocytes Absolute Auto 0.6 K/mm3 (0.1-0.6); Monocytes Percent Auto 8.1 % (2.6-8.5); Neutrophils Absolute Auto 3.9 K/mm3 (1.3-6.7); Neutrophils Percent Auto 55.1 % (45.5-73.1); Platelet Count Result 200 k/mm3 (150-375); Red Blood Count 5.08 M/mm3 (4.6-6.20); Red Cell Distribution Width 13.1 % (11.5-14.5); White Blood Count 7.1 K/mm3 (4.5-10.0)
[2024-07-17 02:46] LABS: Alanine Aminotransferase 31 U/L (6-50); Albumin Level 4.6 g/dL (3.5-5.1); Alkaline Phosphatase 91 U/L (38-126); Anion Gap 9 mmol/L (4-12); Aspartate Amino Transferase 34 U/L (17-59); Bilirubin,Total 0.5 mg/dL (0.2-1.3); Blood Urea Nitrogen 29 mg/dL (9-20); Calcium 9.4 mg/dL (8.4-10.2); Carbon Dioxide 26 mmol/L (22-30); Chloride 104 mmol/L (98-107); Estimated CRCL calculation 103 ml/min; Estimated Glomerular Filt Rate > 60; Glucose 115 mg/dL (65-110); Sodium 139 mmol/L (137-145)
== END 2024-07-17 03:47 | disposition home or self-care (01) ==
PROVIDERS: Emergency Provider Emergency Medicine; PCP Family Medicine
DX: S06.9X9A Unspecified intracranial injury with loss of consciousness of unspecified duration, initial encounter (principal); R42 Dizziness and giddiness; I48.91 Unspecified atrial fibrillation; E78.5 Hyperlipidemia, unspecified; E11.9 Type 2 diabetes mellitus without complications; K21.9 Gastro-esophageal reflux disease without esophagitis; M17.0 Bilateral primary osteoarthritis of knee; Z95.1 Presence of aortocoronary bypass graft; Z86.16 Personal history of COVID-19; Z79.82 Long term (current) use of aspirin; Z79.85 Long-term (current) use of injectable non-insulin antidiabetic drugs; Z79.899 Other long term (current) drug therapy; Z79.84 Long term (current) use of oral hypoglycemic drugs; W01.0XXA Fall on same level from slipping, tripping and stumbling without subsequent striking against object, initial encounter; Y93.79 Activity, other specified sports and athletics
CPT/HCPCS: 36415; 70450; 72125; 80053; 85025; 93005; 99284; A9270